=== PATIENT | male | born 1950 | race Caucasian/White ===

== ENCOUNTER 2016-08-19 01:07 | Inpatient (IN) ==
[2016-08-19] MEDS ORDERED: ASPIRIN PO STA (01:13)
[2016-08-19] MEDS ORDERED: LASIX IV ONE ×2 (01:28→04:04)
[2016-08-19] MEDS ORDERED: ALBUTEROL NEB INH ONE (01:28)
[2016-08-19 02:14] LABS: BASO% 0.1 % (0.0-0.8); EOS# 0.15 X1000 (0.0-0.7); EOS% 2.1 % (0.0-10.0); HEMATOCRIT 43.2 % (42.0-52.0); HEMOGLOBIN 13.5 g/dL (14.0-18.0); LYMPH# 1.07 X1000 (1.2-3.4); LYMPH% 14.8 % (20.5-51.1); MANUAL DIFF NEEDED? NO; MCH 23.2 PG (27-31); MCHC 31.3 g/dL (33-37); MCV 74.2 FL (81-99); MONO# 0.43 X1000 (0.11-0.59); MONO% 5.9 % (1.7-9.3); NEUT% 77.1 % (42.2-75.2); PLT 204 X1000 (130-400); RBC 5.82 XMIL (4.7-6.1)
[2016-08-19 02:22] LABS: INR 1.11; PROTIME 11.7 Seconds (9.2-11.7)
[2016-08-19 02:27] LABS: ALBUMIN 3.5 g/dL (3.5-5.0); CALCIUM 8.4 mg/dL (8.8-10.2); MAGNESIUM 2.2 mg/dL (1.5-2.7); POTASSIUM 3.8 mmol/L (3.5-5.1); TOTAL BILIRUBIN 0.84 mg/dL (0.20-1.00); TOTAL PROTEIN 6.7 g/dL (6.3-8.3)
--- NOTE | 2016-08-19 05:15 | EKG Report ---
Test Performed on : 08/19/2016 01:17:24 AM Test Reason : Chest Pain Blood Pressure : / mmHG Vent. Rate : 099 BPM Atrial Rate : 099 BPM P-R Int : 152 ms QRS Dur : 106 ms QT Int : 376 ms P-R-T Axes : 047 038 126 degrees QTc Int : 482 ms Normal sinus rhythm. Possible Inferior infarct , age undetermined Abnormal ECG When compared with ECG of 24-NOV-2015 01:51, Borderline criteria for Inferior infarct are now present QT has lengthened Unconfirmed Result
[2016-08-19] MEDS ORDERED: ZOFRAN IV PRN (06:00)
[2016-08-19] MEDS: HUMALOG SUBQ SCH ×4 (06:34→21:19)
[2016-08-19] MEDS: APRESOLINE PO SCH ×3 (08:24→16:21)
[2016-08-19] MEDS: NEURONTIN PO SCH ×3 (08:24→21:19)
[2016-08-19] MEDS: COREG PO SCH ×2 (08:24→21:19)
[2016-08-19] MEDS: IMDUR PO SCH (08:24)
[2016-08-19] MEDS: LASIX IV SCH ×2 (08:24→21:18)
[2016-08-19] MEDS: ASPIRIN EC PO SCH (08:24)
[2016-08-19] MEDS: EFFIENT PO SCH (08:24)
--- NOTE | 2016-08-19 08:38 | Diag Imaging Result Document ---
PROCEDURE NAME: CHEST-2 VIEWS - 08/19/2016 CHEST X-RAY, 2 VIEWS: COMPARISON: 11/24/2015. FINDINGS: There is improvement in the diffuse bilateral interstitial infiltrates compatible with pulmonary edema. Stable trace pleural effusions. Heart size remains borderline. IMPRESSION: Improvement in the interstitial pulmonary edema.
--- NOTE | 2016-08-19 11:16 | HISTORY AND PHYSICAL ---
PRIMARY CARE PHYSICIAN: ANTONETTE Shirley. INFORMATION SYSTEMS SECURITY MANAGER: Dr. Johnson in [place]. CHIEF COMPLAINT: Shortness of breath. HISTORY OF PRESENT ILLNESS: This is a 65-year-old male with a known ejection fraction of 30-35% that was last tested on 04/05/2015. He takes Lasix daily. Has other past medical history of hypertension, diabetes mellitus type 2 and now insulin dependent. Comes in to the emergency room with shortness of breath that started yesterday afternoon. The patient was noted as having crepitations bilaterally on assessment. He was given Lasix 40 mg in the emergency room but did not diurese very much and continued to have shortness of breath. Was given an additional 40 of Lasix and will be admitted for further evaluation and treatment. PAST MEDICAL HISTORY: 1. Chronic systolic heart failure with an ejection fraction 30-35% in April of 2015. 2. Hypertension. 3. Diabetes mellitus type 2, now insulin dependent. 4. Chronic kidney disease. 5. Coronary artery disease, status post myocardial infarction in 2000. PREVIOUS SURGICAL HISTORY: 1. Appendectomy. 2. Cardiac stenting. SOCIAL HISTORY: Denies alcohol, tobacco, or illicit drug use or abuse. Lives at home with his . He quit smoking 7 years ago. ALLERGIES: Codeine causing itching. Morphine causing rash. HOME MEDICATIONS: 1. Aspirin 81 mg p.o. daily. 2. Lasix 40 mg p.o. b.i.d. 3. Neurontin 600 mg p.o. t.i.d. 4. Glipizide 5 mg p.o. b.i.d. 5. Vitamin D2 50,000 units p.o. daily. 6. Novolin R 65 units subcutaneously b.i.d. 7. Effient 10 mg p.o. daily. 8. Imdur 30 mg p.o. daily. 9. Carvedilol 3.125 mg p.o. b.i.d. 10. Lipitor 40 mg p.o. at bedtime. 11. Hydralazine 25 mg p.o. t.i.d. REVIEW OF SYSTEMS: Patient has shortness of breath, shortness of breath on exertion, orthopnea, and PND. Denied any chest pain, nausea, vomiting, diarrhea, hematochezia, melena, dizziness, diaphoresis. A 10 point review of systems was fully completed with the patient. All other systems were found to be negative. PHYSICAL EXAMINATION: VITAL SIGNS: Temperature 97.9 degrees, pulse 89, respirations 16, blood pressure 159/82, oxygen saturation 96% on 2 L nasal cannula. GENERAL: Very pleasant, 65-year-old male sitting on the ER stretcher. Mild tachypnea. No accessory muscle use. No acute distress. HEENT: Head is atraumatic, normocephalic. Pupils equal, round, react to light. Extraocular eye movement intact. Sclerae are anicteric. Conjunctivae are pink. Oral mucosa is moist. NECK: Supple. Mild JVD. No thyromegaly. Trachea is midline. No cervical lymphadenopathy. CARDIAC: Regular rhythm. S1-S2 appreciated. No murmurs, gallops, rubs. LUNGS: Bilateral crepitations noted throughout the air denis. Symmetrical rise and fall with respirations. Mildly tachypneic. No accessory muscle use. ABDOMEN: Soft, nondistended, nontender. Bowel sounds present in all 4 quadrants, normoactive. No pulsatile mass. No organomegaly. EXTREMITIES: No clubbing or cyanosis. There is 1+ pitting edema of bilateral lower extremities. SKIN: Warm, dry, and intact. No acute lesions or rash. NEUROLOGICAL: Alert and oriented x3. Cranial nerves 2-12 grossly intact. LABORATORY DATA: WBC 7.25, hemoglobin 13.5, hematocrit 43.2, platelet count 204,000. Coagulation studies within normal limits. D-dimer 0.97. Sodium 140, potassium 3.8, chloride 98, carbon dioxide 25, BUN is 18, creatinine 1.5, glucose 224. ProBNP 11,954. ASSESSMENT AND PLAN: 1. Congestive heart failure exacerbation with known systolic heart failure. Patient has not had an echocardiogram recently. We will schedule an echocardiogram in the morning. Lasix 80 mg was given in the emergency room. We will continue Lasix 60 mg twice a day. Trend intakes, outputs, daily weight. 2. Hypertension. Continue home medications. 3. Diabetes mellitus type 2, now insulin dependent. Sliding scale insulin with fingerstick blood sugars before meals and at bedtime. 4. Chronic kidney disease. Aware. We will monitor. 5. Further recommendations per patient's clinical course. Dictated by ANTONETTE Arias for Cheo Garrido MD cc: ANTONETTE Arias MD Stephanie Weems, CRNP
--- NOTE | 2016-08-19 15:48 | ECHO REPORT ---
ORDER DATE: 08/19/2016 ECHOCARDIOGRAPHIC MEASUREMENTS: 1. Interventricular septum 1.1. 2. Left ventricular posterior wall 1.1. 3. Diastolic diameter 5.8. 4. Left atrium 3.9. 5. Aorta 4. SUMMARY OF 2-DIMENSIONAL IMAGIN. Left ventricular cavity size upper limit of normal. Estimated ejection fraction of 25% to 30%. There is inferior wall akinesis and global hypokinesis. 2. Tricuspid valve was normal. Mitral valve was normal. 3. Aortic valve leaflets are trileaflet. There is no aortic stenosis. There is trace aortic regurgitation. There is mild mitral regurgitation. 4. Mild tricuspid regurgitation. Peak velocity across the tricuspid valve was 2.2 m/sec. There is trace pulmonary regurgitation. 5. There is no pericardial effusion or obvious intracardiac mass or thrombus. cc: MD Tushar Jones CRNP
[2016-08-19] MEDS: LIPITOR PO SCH (21:19)
[2016-08-20] MEDS: HUMALOG SUBQ SCH ×4 (06:26→20:57)
[2016-08-20 07:50] LABS: BASO% 0.2 % (0.0-0.8); EOS# 0.19 X1000 (0.0-0.7); EOS% 3.4 % (0.0-10.0); HEMATOCRIT 40.9 % (42.0-52.0); HEMOGLOBIN 12.7 g/dL (14.0-18.0); LYMPH# 1.13 X1000 (1.2-3.4); LYMPH% 20.3 % (20.5-51.1); MANUAL DIFF NEEDED? YES; MCHC 31.1 g/dL (33-37); MCV 74.2 FL (81-99); MONO# 0.35 X1000 (0.11-0.59); MONO% 6.3 % (1.7-9.3); MPV 10.2 FL (7.4-10.4); NEUT% 69.8 % (42.2-75.2); PLT 198 X1000 (130-400); RBC 5.51 XMIL (4.7-6.1)
[2016-08-20 08:08] LABS: CALCIUM 8.5 mg/dL (8.8-10.2); POTASSIUM 3.2 mmol/L (3.5-5.1)
[2016-08-20] MEDS: COREG PO SCH ×2 (08:16→20:57)
[2016-08-20] MEDS: EFFIENT PO SCH (08:16)
[2016-08-20] MEDS: LASIX IV SCH ×2 (08:16→20:57)
[2016-08-20] MEDS: NEURONTIN PO SCH ×3 (08:16→20:57)
[2016-08-20] MEDS: IMDUR PO SCH (08:16)
[2016-08-20] MEDS: ASPIRIN EC PO SCH (08:16)
[2016-08-20] MEDS: APRESOLINE PO SCH ×3 (08:16→17:40)
[2016-08-20 08:35] LABS: BANDS 2 % (0-1); EOS 6 % (1-10); LYMPHS 20 % (21-51); MONO 8 % (1-9)
[2016-08-20] MEDS ORDERED: VITAMIN D PO SCH (11:00)
--- NOTE | 2016-08-20 14:15 | HISTORY AND PHYSICAL ---
ADDENDUM: Briefly, came in for CHF. Breathing is somewhat improved. Continue IV Lasix. He has some renal insufficiency so we will keep an eye on that. Echo is still pending. The rest of the workup is stable at this time. cc: Jaun Flores MD
[2016-08-20] MEDS ORDERED: KEPPRA 500 MG in NS 100 ML IV ONE (15:00)
[2016-08-20] MEDS: TYLENOL PO PRN (15:20)
--- NOTE | 2016-08-20 17:08 | PROGRESS NOTE ---
DATE: 08/20/2016 SUBJECTIVE: The patient is feeling well. He denied having any fever or chills. Shortness of breath is much improved. No nausea, no vomiting, no diarrhea. OBJECTIVE: Vital signs: Blood pressure is 120/63, pulse of 80, respiration 18, temperature of 98.0 degrees, saturation of 99% on 3 L nasal cannula. General appearance: Well-developed, well- nourished white male, in no acute distress. HEENT: Anicteric sclerae and conjunctivae. Neck: Supple. No JVD. No bruit. Cardiovascular: S1, S2. Normal rate and rhythm. No murmur, rubs, or gallops. Pulmonary: Clear to auscultation bilaterally. GI: Soft, nontender, nondistended. Normoactive bowel sounds. Musculoskeletal: No clubbing, cyanosis, or edema. DIAGNOSTIC DATA: White count 5.56, hemoglobin 12.7, hematocrit 40.9, platelets of 198,000. Chemistries: Sodium 138, potassium 3.2, chloride 96, bicarb 29, BUN 22, creatinine 1.7, glucose of 223. His echocardiogram is about 25%-30%. ASSESSMENT AND PLAN: This is a 65-year-old white male, admitted to the hospital for congestive heart failure. 1. Systolic congestive heart failure exacerbation confirmed by echocardiogram. Continue Lasix 60 mg p.o. b.i.d. We will watch his renal functions. If creatinine is creeping up we will back off on his Lasix to 40 mg twice a day instead of 60. We will keep the patient on Coreg for now. 2. His kidney function is marginal for an JONATHAN inhibitor or ARB. We will keep him on hydralazine and Imdur. 3. Diabetes type 2. We will continue sliding scale insulin. 4. Hyperlipidemia. We will continue Lipitor and aspirin. 5. History of coronary artery disease. Continue Effient. 6. Deep venous thrombosis prophylaxis, put the patient on Lovenox.
[2016-08-20] MEDS ORDERED: NS 1,000 ML ONE (18:21)
[2016-08-20] MEDS: POTASSIUM CHLORIDE 20 MEQ/SWI 20 MEQ/100 ML IVPB IV SCH ×2 (18:28→20:56)
[2016-08-20] MEDS: LIPITOR PO SCH (20:57)
[2016-08-21] MEDS: TYLENOL PO PRN (03:19)
[2016-08-21] MEDS: HUMALOG SUBQ SCH ×2 (06:13→11:05)
[2016-08-21 07:01] LABS: BASO% 0.2 % (0.0-0.8); EOS# 0.21 X1000 (0.0-0.7); EOS% 3.3 % (0.0-10.0); HEMATOCRIT 38.7 % (42.0-52.0); HEMOGLOBIN 12.1 g/dL (14.0-18.0); LYMPH# 1.31 X1000 (1.2-3.4); LYMPH% 20.8 % (20.5-51.1); MANUAL DIFF NEEDED? NO; MCH 23.3 PG (27-31); MCHC 31.3 g/dL (33-37); MCV 74.4 FL (81-99); MONO% 7.9 % (1.7-9.3); MPV 9.7 FL (7.4-10.4); NEUT% 67.8 % (42.2-75.2); PLT 182 X1000 (130-400)
[2016-08-21 07:24] LABS: CALCIUM 8.3 mg/dL (8.8-10.2); POTASSIUM 3.9 mmol/L (3.5-5.1)
[2016-08-21 08:38] VITALS: BP 144/86
[2016-08-21] MEDS ORDERED: LOVENOX SUBQ SCH (09:00)
[2016-08-21] MEDS: EFFIENT PO SCH (09:41)
[2016-08-21] MEDS: IMDUR PO SCH (09:41)
[2016-08-21] MEDS: LASIX IV SCH (09:41)
[2016-08-21] MEDS: APRESOLINE PO SCH ×2 (09:41→12:56)
[2016-08-21] MEDS: ASPIRIN EC PO SCH (09:41)
[2016-08-21] MEDS: NEURONTIN PO SCH (09:41)
[2016-08-21] MEDS: COREG PO SCH (09:41)
--- NOTE | 2016-08-22 12:51 | DISCHARGE SUMMARY ---
ADMISSION DATE: 08/19/2016 DISCHARGE DATE: 08/21/2016 PERTINENT PROCEDURES: Echocardiogram showed an EF of 25% to 30%. There is inferior wall, akinesis and global hypokinesis. CONSULTATIONS: None. DISCHARGE DIAGNOSES: 1. Systolic congestive heart failure exacerbation confirmed by echocardiogram. Patient was continued on Lasix p.o. b.i.d. as well as his Coreg. Stable. 2. Chronic kidney disease. Patient cannot be started on Angiotensin converting enzyme or angiotensin II receptor blockers secondary to this. He was kept on hydralazine and Imdur. 3. Diabetes mellitus type 2. Continue with his home insulin regimen. 4. Hyperlipidemia. Continue Lipitor. 5. Coronary artery disease. Continue Effient. HOSPITAL COURSE: Mr. Campos is a 65-year-old male with a known EF of 30% of 35 %. That was tested on 04/05/2015. He takes Lasix daily. He has a past medical history of hypertension, diabetes mellitus type 2 that is insulin dependent, who came to the emergency room with shortness of breath that started the day before. He was noted to have crepitations bilaterally on assessment. He was given IV Lasix in the ED but did not diurese very much. Continued to have shortness of breath. He was given additional 40 of Lasix and was admitted for CHF exacerbation with known systolic heart failure. He did undergo a more recent echocardiogram on this admission that did show an EF of 25% to 30% with inferior wall, akinesis and global hypokinesis. They trended his intakes and outputs as well as daily weights. He remained on his sliding scale insulin. The patient diuresed well. Due to his kidney function, we were unable to start any JONATHAN or ARB. Clinically, the patient is feeling better. His shortness of breath has much improved. He was put back on his p.o. Lasix 40 mg twice daily instead of 60 and remained on his beta nimisha. Patient is appropriate for discharge home today. VITAL SIGNS: At time of his discharge, temperature is 97.8 degrees, heart rate 90, respirations 19, blood pressure 144/86, O2 is 93%. DISCHARGE DIET: Healthy heart. DISCHARGE MEDICATIONS: 1. Aspirin 81 mg p.o. q.a.m. 2. Lipitor 40 mg p.o. at bedtime. 3. Carvedilol 3.125 mg p.o. b.i.d. 4. Vitamin D 50,000 units p.o. daily. 5. Lasix 60 mg p.o. b.i.d. 6. Gabapentin 600 mg p.o. t.i.d. 7. Glipizide ER 5 mg p.o. b.i.d. 8. Apresoline 25 mg p.o. t.i.d. 9. Novolin R 65 units subcutaneously b.i.d. 10. Imdur 30 mg p.o. daily. 11. Effient 10 mg p.o. daily. FOLLOWUP: Patient is being discharged home. He can follow up with his primary care physician, ANTONETTE Shirley. Patient can to return to the ED for any worsening of symptoms. DISCHARGE TIME: Thirty minutes. Dictated by ANTONETTE Guidry for Mehdi Euceda MD cc: ANTONETTE Shirley Addendum: I personally evaluated and examined the patient in conjunction to the TRANSMISSION MECHANIC and agreed with her plans and dispositions. Lungs exam is clear today. MTDD
--- NOTE | 2016-08-27 23:18 | PROVIDER DOCUMENTATION ---
This chart was entered by Yuliana Medina Scribe, acting as scribe for Saeed Glover MD. HPI-Respiratory General - General Chief Complaint: Shortness of Breath Stated Complaint: SOB Time Seen by Provider: 08/19/16 01:21 Source: patient Allergies/Adverse Reactions: Patient Allergies Allergy/AdvReac Type Severity Reaction Status Date / Time codeine [Codeine] Allergy Severe ITCHING Verified 08/26/16 14:43 morphine Allergy Intermediate RASH Verified 08/19/16 02:00 Home Medications: Home Medication List Medication Instructions Recorded Confirmed Last Taken Type Aspirin/Calcium Carbonate/Mag 81 mg PO QAM 04/05/15 08/26/16 08/26/16 09:00 History [Aspirin Buffered 325 mg Tab] Gabapentin 600 mg PO TID@0900,1500,2100 07/27/15 08/26/16 08/26/16 09:00 History Ergocalciferol (Vitamin D2) 50,000 units PO ORDERED 11/24/15 08/27/16 09:00 History [Vitamin D] Glipizide [Glipizide ER] 5 mg PO BID 11/24/15 08/26/16 08/26/16 09:00 History Insulin Regular, Human [Novolin R] 65 units SUBQ BID 11/24/15 08/26/16 08/25/16 09:00 History ATORVAstatin [Lipitor] 40 mg PO QHS 02/04/16 08/26/16 08/25/16 09:00 History Carvedilol 3.125 mg PO BID 02/04/16 08/26/16 08/26/16 09:00 History Hydralazine [Apresoline] 25 mg PO TID 02/04/16 08/26/16 08/26/16 09:00 History Isosorbide Mononitrate E.r. [Imdur] 30 mg PO DAILY 02/04/16 08/26/16 08/26/16 09 :00 History Prasugrel [Effient] 10 mg PO DAILY 02/04/16 08/26/16 08/26/16 09:00 History Furosemide 60 mg PO BID #90 08/21/16 08/26/16 08/26/16 09:00 Rx - History of Present Illness-Resp Nature of Presenting Problem: 65 year old M presents to the ED with a cc of shortness of breath with an onset of this afternoon around 1300. PT states that it is getting worse. PT denies chest pain, nausea, and vomiting. PT states that he has been taking his medications as prescribed. Severity in ED: reports: moderate Onset/Duration: reports: this afternoon (1300) Timing: reports: still present, getting worse Cough Quality/Degree: reports: no cough Current Respiratory Medication Therapy: Initiated see nurses note Modifying Factors: worse with: exertion, lying down Associated Symptoms: reports: shortness of breath Similar Symptoms Previously?: Yes Recently seen or treated by another doctor?: No Review of Systems - Adult - REVIEW OF SYSTEMS - ADULT Constitutional: denies: chills, fever Eyes: reports: no symptoms reported Ears, Nose, Mouth & Throat: reports: no symptoms reported Cardiovascular: denies: chest pain, palpitations Respiratory: reports: shortness of breath. denies: cough Gastrointestinal: denies: abdominal pain, nausea, vomiting Genitourinary: reports: no symptoms reported Musculoskeletal: reports: no symptoms reported Integumentary: reports: no symptoms reported Neurological: reports: no symptoms reported Psychiatric: reports: no symptoms reported Endocrine: reports: no symptoms reported Hematologic/Lymphatic: reports: no symptoms reported Allergic/Immunologic: reports: no symptoms reported All Other Systems: Reviewed and Negative Past History - Adult - PAST MEDICAL HISTORY-ADULT Review of Records: reports: Nursing Assessment Review, Medications Reviewed Major Childhood Illnesses: reports: denies history Cardiovascular: reports: CAD, CHF, HTN, [place] Respiratory: reports: COPD Gastrointestinal: reports: denies history Genitourinary: reports: denies history Musculoskeletal: reports: other (neuropathy) Neurological: reports: denies history Psychiatric: reports: denies history Endocrine/Immune: 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), Diabetes Other Conditions: reports: other (2 stents in bottom of leg) - PRIOR SURGERIES/PROCEDURES Surgical/Procedure History: reports: appendectomy, other (femoral stent) - PRIOR HOSPITALIZATIONS Prior Hospitalizations: reports: for similar symptoms - IMMUNIZATION STATUS Childhood Immunizations: See Nurse Assessment Flu Vaccine: See Nurse Assessment - FAMILY HISTORY Family History: reviewed, not pertinent - SOCIAL HISTORY Smoking: non-smoker Substance Use: none/never Alcohol Use Frequency: never Physical Exam-General - PHYSICAL EXAM-ADULT Initial Vital Signs Reviewed: Yes - CONSTITUTIONAL General Appearance: alert, mild distress - RESPIRATORY Respiratory: lungs clear, respiratory distress (mild), other (orthopnic) - CARDIOVASCULAR Cardiovascular: normal peripheral pulses, regular rate, rhythm, no edema - GASTROINTESTINAL (ABDOMEN) Abdominal Exam: non tender, soft - MUSCULOSKELETAL Extremity: pedal edema (bilateral trace edema) - SKIN Integumentary: normal color, normal turgor, warm/dry - PSYCHIATRIC Psych/Mental Status: normal mood/affect, normal thought content, normal thought process, oriented x 3 Progress - PLAN OF CARE/RESULTS Progress/Plan/Lab Results: Orders Category Date Time Status Admit - [facility] Routine AdmDCTranf 08/19/16 06:00 Ordered Activity - Up with Assistance ORDERED Care 08/19/16 06:00 Active Apply Mechanical Device [QM] ORDERED Care 08/19/16 06:00 Active Cardiac Monitoring DIRECTED Care 08/19/16 01:13 Completed Daily Weights 0500 Care 08/19/16 06:00 Active FSBS/Accucheck Result AC + HS Care 08/19/16 06:00 Active Intake and Output-Strict ORDERED Care 08/19/16 06:00 Active Oxygen Therapy- ED Nursing DIRECTED Care 08/19/16 01:13 Completed Saline Loc NOW Care 08/19/16 01:13 Active Vital Signs Order Q 4-HR ASSESS Care 08/19/16 06:00 Active Weight on Admission ORDERED Care 08/19/16 06:00 Completed Heart Healthy Diet Diet 08/19/16 05:07 Completed CHEST-2 VIEWS [RAD] Stat Exams 08/19/16 01:13 Completed BASIC METABOLIC PANEL [CHEM] Routine Lab 08/20/16 07:00 Completed CBC WITH DIFF [HEME] Routine Lab 08/20/16 07:00 Completed CBC WITH ELECTRONIC DIFF [HEME] Stat Lab 08/19/16 01:50 Completed CK PROFILE [SP CHEM] Stat Lab 08/19/16 01:50 Completed COMPREHENSIVE METABOLIC PANEL [CHEM] Stat Lab 08/19/16 01:50 Completed D-DIMER [CHEM] Stat Lab 08/19/16 01:50 Completed MAGNESIUM [CHEM] Stat Lab 08/19/16 01:50 Completed PRO B-NATRIURETIC PEPTIDE Stat Lab 08/19/16 01:50 Completed PROTIME WITH INR [COAG] Stat Lab 08/19/16 01:50 Completed PTT [COAG] Stat Lab 08/19/16 01:50 Completed TROPONIN T Stat Lab 08/19/16 01:50 Completed ATORVAstatin [Lipitor] Med 08/19/16 21:00 Discontinued 40 mg PO QHS Albuterol [Albuterol Neb] Med 08/19/16 01:28 Discontinued 2.5 mg INH NOW ONE Aspirin Med 08/19/16 01:13 Discontinued 325 mg PO STAT STA Aspirin EC Med 08/19/16 09:00 Discontinued 81 mg PO QAM Carvedilol [Coreg] Med 08/19/16 09:00 Discontinued 3.125 mg PO BID Ergocalciferol (Vitamin D2) [Vitamin D] Med 08/20/16 11:00 Discontinued 50,000 unit PO Q7D Furosemide [Lasix] Med 08/19/16 01:28 Discontinued 40 mg IV NOW ONE Furosemide [Lasix] Med 08/19/16 04:04 Discontinued 40 mg IV NOW ONE Furosemide [Lasix] Med 08/19/16 09:00 Discontinued 60 mg IV Q12H Gabapentin [Neurontin] Med 08/19/16 09:00 Discontinued 600 mg PO TID@0900,1500,2100 Hydralazine [Apresoline] Med 08/19/16 09:00 Discontinued 25 mg PO TID Insulin Lispro [Humalog] Med 08/19/16 07:00 Discontinued See Protocol SUBQ 0700,1100,1600,2100 Isosorbide Mononitrate E.r. [Imdur] Med 08/19/16 09:00 Discontinued 30 mg PO DAILY Ondansetron [Zofran] Med 08/19/16 06:00 Discontinued 4 mg IV Q4H PRN PRN Prasugrel [Effient] Med 08/19/16 09:00 Discontinued 10 mg PO DAILY Aerosol Treatments Routine Oth 08/19/16 01:28 Completed Aerosol Treatments Stat Oth 08/19/16 01:28 Completed Oxygen Device Routine Oth 08/19/16 06:00 Completed Telemetry [OM.EQ] Routine Oth 08/19/16 06:00 Active EKG [EKG] Stat Ther 08/19/16 01:13 Draft Transfer/Admit Order [TRANSFER] Routine Transfer 08/19/16 05:06 Completed Result Diagrams: 08/21/16 06:45 08/21/16 06:45 - EKG 1 Time of EKG reading by physician:: 01:17 EKG Read and Signed by:: Saeed Glover EKG Interpretation (*Must complete 3 of following elements*): Abnormal Rate: 99 Rhythm: NSR Comments: possible inferior infarct, age undetermined - XRAY 1 XRAY Study: Chest Impression: Abnormal (small right pleural effusion, scarring at left base, boarderline cardiomegally: Dr. Glover(ER MD)) Departure - Departure Time of Disposition Decision: 02:59 DIAGNOSIS: Congestive heart failure (CHF) Disposition: ADMITTED INPATIENT 09 Certified Medical Emergency: Emergent Condition: Fair - Critical Care Note This patient required my direct personal management.: No This chart was documented by the indicated scribe, (Yuliana Medina Scribe) and accurately reflects the services I performed and decisions made by me, Saeed Glover MD, as attested by the provider's signature.
== END 2016-08-21 13:57 | disposition home or self-care (01) ==
LOC: ED 01:07 → 3N 05:29 → SUATTDRO 05:29
PROVIDERS: ATTEND Internal Medicine

== ENCOUNTER 2016-08-26 12:36 | Inpatient (IN) ==
[2016-08-26] MEDS ORDERED: ASPIRIN PO STA (13:03)
[2016-08-26 13:34] LABS: BASO% 0.1 % (0.0-0.8); EOS# 0.15 X1000 (0.0-0.7); EOS% 1.4 % (0.0-10.0); HEMATOCRIT 39.5 % (42.0-52.0); HEMOGLOBIN 12.3 g/dL (14.0-18.0); LYMPH# 0.83 X1000 (1.2-3.4); LYMPH% 7.7 % (20.5-51.1); MANUAL DIFF NEEDED? NO; MCH 23.2 PG (27-31); MCHC 31.1 g/dL (33-37); MCV 74.5 FL (81-99); MONO# 0.55 X1000 (0.11-0.59); MONO% 5.1 % (1.7-9.3); MPV 10.9 FL (7.4-10.4); NEUT% 85.7 % (42.2-75.2); PLT 210 X1000 (130-400)
[2016-08-26 13:42] LABS: INR 1.03; PROTIME 10.8 Seconds (9.2-11.7); PTT 27.3 Seconds (22.0-36.0)
[2016-08-26 13:59] LABS: ALBUMIN 3.4 g/dL (3.5-5.0); CALCIUM 8.5 mg/dL (8.8-10.2); MAGNESIUM 2.2 mg/dL (1.5-2.7); POTASSIUM 4.9 mmol/L (3.5-5.1); TOTAL BILIRUBIN 0.55 mg/dL (0.20-1.00); TOTAL PROTEIN 6.2 g/dL (6.3-8.3)
[2016-08-26] MEDS ORDERED: NS 2,000 ML ONE (14:16)
--- NOTE | 2016-08-26 15:00 | Diag Imaging Result Document ---
PROCEDURE NAME: CHEST-2 VIEWS - 08/26/2016 FRONTAL AND LATERAL CHEST, 2 VIEWS: FINDINGS: The lungs are hyperexpanded. The heart is not enlarged. There are infiltrates in the mid and lower right lung. I believe there are tiny effusions. Questionable atelectasis or a tiny infiltrate in the left base. IMPRESSION: Right-sided pneumonia.
[2016-08-26] MEDS ORDERED: NS 1,000 ML IV ONE (15:45)
[2016-08-26] MEDS ORDERED: HUMULIN R IV ONE ×2 (15:46→17:36)
[2016-08-26] MEDS ORDERED: LASIX IV ONE (15:51)
[2016-08-26] MEDS ORDERED: HUMULIN R 100 UNIT in NS 99 ML IV ONE (15:54)
[2016-08-26] MEDS ORDERED: HUMULIN R 100 UNIT in NS 99 ML IV SCH (16:05)
--- NOTE | 2016-08-26 16:15 | EKG Report ---
Test Performed on : 08/26/2016 1:02:03 PM Test Reason : SOB Blood Pressure : / mmHG Vent. Rate : 098 BPM Atrial Rate : 098 BPM P-R Int : 150 ms QRS Dur : 100 ms QT Int : 330 ms P-R-T Axes : 044 026 217 degrees QTc Int : 421 ms Normal sinus rhythm. Possible Left atrial enlargement Possible Inferior infarct (cited on or before 19-AUG-2016) ST \T\ T wave abnormality, consider lateral ischemia Abnormal ECG When compared with ECG of 19-AUG-2016 01:17, QT has shortened Unconfirmed Result
[2016-08-26 16:28] LABS: ALLEN TEST YES; BE 3.9 mmoll (-3.0-3.0); BLOOD TYPE ARTERIAL; DRAW SITE R RADIAL; METHB 1.7 % (0.0-1.5); O2(CT) 13.8 mL/dL (15.0-23.0); PCO2(98.6) 42 mmHg (35-45); SAMPLE BLOOD; SAO2 80.5 % (95.0-100.0); THB 12.9 g/dL (11.5-17.4); pH(98.6) 7.44 (7.35-7.45)
[2016-08-26 16:30] LABS: PO2(98.6) 35 mmHg (60-100)
[2016-08-26 16:31] LABS: MODALITY ROOM AIR
--- NOTE | 2016-08-26 17:01 | PROVIDER DOCUMENTATION ---
This chart was entered by Modesto Guzman Scribe, acting as scribe for Adam Gifford MD. HPI-Respiratory General - General Chief Complaint: High Blood Sugar Stated Complaint: RECHECK Time Seen by Provider: 08/26/16 15:24 Source: patient Allergies/Adverse Reactions: Patient Allergies Allergy/AdvReac Type Severity Reaction Status Date / Time codeine [Codeine] Allergy Severe ITCHING Verified 08/26/16 14:43 morphine Allergy Intermediate RASH Verified 08/19/16 02:00 Home Medications: Home Medication List Medication Instructions Recorded Confirmed Last Taken Type Aspirin/Calcium Carbonate/Mag 81 mg PO QAM 04/05/15 08/26/16 08/26/16 09:00 History [Aspirin Buffered 325 mg Tab] Gabapentin 600 mg PO TID@0900,1500,2100 07/27/15 08/26/16 08/26/16 09:00 History Ergocalciferol (Vitamin D2) 50,000 units PO DAILY 11/24/15 08/26/16 08/26/16 09: 00 History [Vitamin D] Glipizide [Glipizide ER] 5 mg PO BID 11/24/15 08/26/16 08/26/16 09:00 History Insulin Regular, Human [Novolin R] 65 units SUBQ BID 11/24/15 08/26/16 08/25/16 09:00 History ATORVAstatin [Lipitor] 40 mg PO QHS 02/04/16 08/26/16 08/25/16 09:00 History Carvedilol 3.125 mg PO BID 02/04/16 08/26/16 08/26/16 09:00 History Hydralazine [Apresoline] 25 mg PO TID 02/04/16 08/26/16 08/26/16 09:00 History Isosorbide Mononitrate E.r. [Imdur] 30 mg PO DAILY 02/04/16 08/26/16 08/26/16 09 :00 History Prasugrel [Effient] 10 mg PO DAILY 02/04/16 08/26/16 08/26/16 09:00 History Furosemide 60 mg PO BID #90 08/21/16 08/26/16 08/26/16 09:00 Rx - History of Present Illness-Resp Nature of Presenting Problem: 65 y/o M presents to the ED c/o shortness of breath. onset this morning. hx of chf. discharged yesterday from [facility]. denies chest pain and all other symptoms. no other voiced complaints. Quality of Pain: reports: none Severity in ED: reports: mild Onset/Duration: reports: this morning Timing: reports: still present Exposure: reports: unknown cause Cough Quality/Degree: reports: no cough Current Respiratory Medication Therapy: Initiated see nurses note Modifying Factors: improves with: nothing Associated Symptoms: reports: shortness of breath Similar Symptoms Previously?: Yes Recently seen or treated by another doctor?: Yes Review of Systems - Adult - REVIEW OF SYSTEMS - ADULT Constitutional: denies: chills, fever Eyes: reports: no symptoms reported Ears, Nose, Mouth & Throat: reports: no symptoms reported Cardiovascular: denies: chest pain, palpitations Respiratory: reports: shortness of breath. denies: cough, wheezing Gastrointestinal: denies: diarrhea, nausea, vomiting Genitourinary: denies: dysuria, frequency Musculoskeletal: reports: no symptoms reported Integumentary: reports: no symptoms reported Neurological: denies: dizziness/vertigo, headache/migraines Psychiatric: reports: no symptoms reported Endocrine: reports: no symptoms reported Hematologic/Lymphatic: reports: no symptoms reported Allergic/Immunologic: reports: no symptoms reported All Other Systems: Reviewed and Negative Past History - Adult - PAST MEDICAL HISTORY-ADULT Review of Records: reports: Nursing Assessment Review, Medications Reviewed Major Childhood Illnesses: reports: denies history Cardiovascular: reports: CAD, CHF, HTN, DE Respiratory: reports: COPD Gastrointestinal: reports: denies history Genitourinary: reports: denies history Musculoskeletal: reports: other (neuropathy) Neurological: reports: denies history Psychiatric: reports: denies history Endocrine/Immune: 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), Diabetes Other Conditions: reports: other (2 stents in bottom of leg) - PRIOR SURGERIES/PROCEDURES Surgical/Procedure History: reports: appendectomy, other (femoral stent) - PRIOR HOSPITALIZATIONS Prior Hospitalizations: reports: for similar symptoms - IMMUNIZATION STATUS Childhood Immunizations: See Nurse Assessment Flu Vaccine: See Nurse Assessment - FAMILY HISTORY Family History: reviewed, not pertinent Physical Exam-General - PHYSICAL EXAM-ADULT Initial Vital Signs Reviewed: Yes - CONSTITUTIONAL General Appearance: alert, no apparent distress - EYES Eyes: PERRL/EOMI, pink conjunctivae - HEAD, EARS, NOSE, MOUTH & THROAT HENMT: moist mucous membranes, normal ENT inspection - NECK Neck: full range of motion, normal inspection - RESPIRATORY Respiratory: lungs clear, normal breath sounds, accessory muscle use - CARDIOVASCULAR Cardiovascular: normal peripheral pulses, regular rate, rhythm - GASTROINTESTINAL (ABDOMEN) Abdominal Exam: normal bowel sounds, non tender, soft - MUSCULOSKELETAL Extremity: normal range of motion, normal capillary refill - SKIN Integumentary: normal color, warm/dry - NEUROLOGIC Neurologic: 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 II-XII nml as tested, no motor/sensory deficits - PSYCHIATRIC Psych/Mental Status: normal mood/affect, oriented x 3 Progress - PLAN OF CARE/RESULTS Progress/Plan/Lab Results: Vital Signs - 8 hr 08/26/16 12:57 08/26/16 14:50 08/26/16 15:06 Temperature 98.4 F Pulse Rate 94 H 92 H 91 H Respiratory Rate 22 19 9 L Blood Pressure 119/49 150/84 150/78 O2 Sat by Pulse Oximetry 89 L 83 L 08/26/16 16:11 08/26/16 16:31 Temperature Pulse Rate 85 Respiratory Rate Blood Pressure 171/97 O2 Sat by Pulse Oximetry 92 L 92 L Laboratory Results - last 24 hr 08/26/16 08/26/16 08/26/16 13:16 13:16 13:16 WBC 10.74 RBC 5.30 Hgb 12.3 L Hct 39.5 L MCV 74.5 L MCH 23.2 L MCHC 31.1 L RDW Std Deviation 17.8 H Plt Count 210 MPV 10.9 H Immature Gran % (Auto) 0.0 Neut % (Auto) 85.7 H Lymph % (Auto) 7.7 L Tyrrell % (Auto) 5.1 Eos % (Auto) 1.4 Baso % (Auto) 0.1 Immature Gran # (Auto) 0.00 Neut # (Auto) 9.20 H Lymph # (Auto) 0.83 L Tyrrell # (Auto) 0.55 Eos # (Auto) 0.15 Baso # (Auto) 0.01 PT INR PTT (Actin FS) D-Dimer 0.77 H Specimen Type Sample Site pH pCO2 pO2 HCO3 Base Excess Oxyhemoglobin ABG O2 Sat (Calculated) ABG O2 Saturation ABG Carboxyhemoglobin ABG Methemoglobin Jose Test A-a O2 Difference Total Hemoglobin Lactate Blood Gas Modality FiO2 % Sodium 138 Potassium 4.9 Chloride 97 L Carbon Dioxide 27 Anion Gap 14 BUN 23 H Creatinine 1.6 H Estimated GFR/1.73 m2 44 BUN/Creatinine Ratio 14 Glucose 462 H* Calculated Osmolality 300 Calcium 8.5 L Magnesium 2.2 Total Bilirubin 0.55 AST 13 ALT 7 L Alkaline Phosphatase 75 Creatine Kinase 27 Troponin T Nys-G-Letersorypl Pept Total Protein 6.2 L Albumin 3.4 L Globulin 2.8 Albumin/Globulin Ratio 1.2 08/26/16 08/26/16 08/26/16 13:16 13:16 13:16 WBC RBC Hgb Hct MCV MCH MCHC RDW Std Deviation Plt Count MPV Immature Gran % (Auto) Neut % (Auto) Lymph % (Auto) Tyrrell % (Auto) Eos % (Auto) Baso % (Auto) Immature Gran # (Auto) Neut # (Auto) Lymph # (Auto) Tyrrell # (Auto) Eos # (Auto) Baso # (Auto) PT 10.8 INR 1.03 PTT (Actin FS) 27.3 D-Dimer Specimen Type Sample Site pH pCO2 pO2 HCO3 Base Excess Oxyhemoglobin ABG O2 Sat (Calculated) ABG O2 Saturation ABG Carboxyhemoglobin ABG Methemoglobin Jose Test A-a O2 Difference Total Hemoglobin Lactate Blood Gas Modality FiO2 % Sodium Potassium Chloride Carbon Dioxide Anion Gap BUN Creatinine Estimated GFR/1.73 m2 BUN/Creatinine Ratio Glucose Calculated Osmolality Calcium Magnesium Total Bilirubin AST ALT Alkaline Phosphatase Creatine Kinase Troponin T < 0.010 [id number]-Ulfcyakbqig Pept 9973 H Total Protein Albumin Globulin Albumin/Globulin Ratio 08/26/16 16:15 WBC RBC Hgb Hct MCV MCH MCHC RDW Std Deviation Plt Count MPV Immature Gran % (Auto) Neut % (Auto) Lymph % (Auto) Tyrrell % (Auto) Eos % (Auto) Baso % (Auto) Immature Gran # (Auto) Neut # (Auto) Lymph # (Auto) Tyrrell # (Auto) Eos # (Auto) Baso # (Auto) PT INR PTT (Actin FS) D-Dimer Specimen Type ARTERIAL Sample Site R RADIAL pH 7.44 pCO2 42 pO2 35 L* HCO3 27.4 H Base Excess 3.9 H Oxyhemoglobin 76.3 L* ABG O2 Sat (Calculated) 13.8 L ABG O2 Saturation 80.5 L ABG Carboxyhemoglobin 3.60 H ABG Methemoglobin 1.7 H Jose Test YES A-a O2 Difference 62.0 Total Hemoglobin 12.9 Lactate 1.70 Blood Gas Modality ROOM AIR FiO2 % 21.0 Sodium Potassium Chloride Carbon Dioxide Anion Gap BUN Creatinine Estimated GFR/1.73 m2 BUN/Creatinine Ratio Glucose Calculated Osmolality Calcium Magnesium Total Bilirubin AST ALT Alkaline Phosphatase Creatine Kinase Troponin T Eee-P-Onalixlqrkk Pept Total Protein Albumin Globulin Albumin/Globulin Ratio Orders Category Date Time Status Cardiac Monitoring DIRECTED Care 08/26/16 13:03 Active FSBS/Accucheck Result ORDERED Care 08/26/16 15:53 Active Oxygen Therapy- ED Nursing DIRECTED Care 08/26/16 13:03 Active Saline Loc NOW Care 08/26/16 13:03 Active CHEST-2 VIEWS [RAD] Stat Exams 08/26/16 13:03 Completed ABG [RESP] Routine Lab 08/26/16 16:15 Completed BLOOD CULTURE [BLDCUL] Stat Lab 08/26/16 16:28 Ordered CBC WITH ELECTRONIC DIFF [HEME] Stat Lab 08/26/16 13:16 Completed CK PROFILE [SP CHEM] Stat Lab 08/26/16 13:16 Completed COMPREHENSIVE METABOLIC PANEL [CHEM] Stat Lab 08/26/16 13:16 Completed D-DIMER [CHEM] Stat Lab 08/26/16 13:16 Completed MAGNESIUM [CHEM] Stat Lab 08/26/16 13:16 Completed PRO B-NATRIURETIC PEPTIDE Stat Lab 08/26/16 13:16 Completed PROTIME WITH INR [COAG] Stat Lab 08/26/16 13:16 Completed PTT [COAG] Stat Lab 08/26/16 13:16 Completed TROPONIN T Stat Lab 08/26/16 13:16 Completed 0.9% Sodium Chloride Inj [Ns] 1,000 ml Med 08/26/16 14:16 Discontinued .ROUTE As Directed 0.9% Sodium Chloride Inj [Ns] 1,000 ml Med 08/26/16 15:45 Active IV 150 mls/hr 0.9% Sodium Chloride Inj [Ns] 99 ml Med 08/26/16 16:05 Active Insulin Human Regular [Humulin R] 100 unit IV Per Protocol Aspirin Med 08/26/16 13:03 Discontinued 325 mg PO STAT STA Furosemide [Lasix] Med 08/26/16 15:51 Discontinued 60 mg IV NOW ONE Insulin Human Regular [Humulin R] Med 08/26/16 15:46 Discontinued 10 unit IV NOW ONE EKG [EKG] Stat Ther 08/26/16 12:59 Draft Result Diagrams: 08/26/16 13:16 08/26/16 13:16 - XRAY 1 XRAY Study: Chest Impression: Abnormal (right sided pneumonia) Departure - Departure Time of Disposition Decision: 16:57 DIAGNOSIS: Hypoxia Pneumonia Qualifiers: Pneumonia type: due to unspecified organism Laterality: right Lung location: lower lobe of lung Qualified Code(s): J18.1 - Lobar pneumonia, unspecified organism CHF (congestive heart failure) Qualifiers: Congestive heart failure type: systolic Congestive heart failure chronicity: chronic Qualified Code(s): I50.22 - Chronic systolic (congestive) heart failure Disposition: ADMITTED INPATIENT 09 Certified Medical Emergency: Emergent Condition: Stable Referrals and Follow-Ups: Malou Kenney CRNP [Primary Care Provider] - - Critical Care Note This patient required my direct personal management.: No This chart was documented by the indicated scribe, (Modesto Guzman Scribrenata) and accurately reflects the services I performed and decisions made by me, Adam Gifford MD, as attested by the provider's signature.
[2016-08-26] MEDS ORDERED: ZITHROMAX 500 MG/NS 500 MG/250 ML IVPB IV SCH (17:15)
[2016-08-26] MEDS ORDERED: ROCEPHIN 1 GM/NS 1 GM/50 ML IVPB IV SCH (17:15)
[2016-08-26] MEDS ORDERED: LANTUS SUBQ ONE (17:20)
[2016-08-26] MEDS ORDERED: ZITHROMAX 500 MG/NS 500 MG/250 ML IVPB IV ONE (17:30)
[2016-08-26] MEDS: ROCEPHIN 1 GM/NS 1 GM/50 ML IVPB IV SCH (17:45)
[2016-08-26] MEDS ORDERED: DUONEB (A & A) INH PRN (18:27)
[2016-08-26] MEDS ORDERED: ZOFRAN IV PRN (18:27)
[2016-08-26] MEDS ORDERED: TYLENOL PO PRN (18:27)
--- NOTE | 2016-08-26 18:59 | HISTORY AND PHYSICAL ---
CHIEF COMPLAINT: Shortness of breath and cough. HISTORY OF PRESENT ILLNESS: 65-year-old male with a past medical history of CHF with an ejection fraction of 30-35% in April 2015, recently discharged on 08/21/2016 secondary to CHF exacerbation, also history of hypertension, type 2 diabetes, CKD and coronary artery disease status post myocardial infarction in 2000. Like I mentioned before, this patient was recently discharged. Yesterday he started having cough with greenish sputum and today at 3 a.m. he started having shortness of breath to the point that he was getting dizzy so he decided to come to the emergency department for evaluation. At the emergency department they found out that this patient was hypoxic. They put this patient on oxygen and they asked for a chest x-ray that showed a right-sided pneumonia at the level of the mid and lower right lung. So since this patient was recently discharged from this hospital and now he is having pneumonia this patient is going to be admitted with antibiotics. PAST MEDICAL HISTORY: 1. CHF, systolic with an ejection fraction of 30-35% in April 2015 recently discharged on 08/21/2016. 2. Hypertension. 3. Type 2 diabetes insulin dependent. 4. CKD. 5. Coronary artery disease status post myocardial infarction in 2000. PAST SURGICAL HISTORY: Appendectomy and cardiac stenting. SOCIAL HISTORY: No alcohol, no tobacco, no drug abuse. He lives with and he quit smoking 7 years ago. ALLERGIES: Codeine and morphine. Apparently those medications caused itching and rash. DISCHARGE MEDICATIONS: Aspirin 81 mg p.o. q.a.m., Lipitor 40 mg p.o. at bedtime, carvedilol 3.125 mg p.o. b.i.d., vitamin D 50,000 units p.o. daily, Lasix 60 mg p.o. b.i.d., gabapentin 600 mg p.o. t.i.d., glipizide ER 5 mg p.o. b.i.d., Apresoline 25 mg p.o. t.i.d., Novolin R 65 units subcu b.i.d., Imdur 30 mg p.o. daily, Effient 10 mg p.o. daily. REVIEW OF SYSTEMS: General: Shortness of breath. Cough with green sputum. The 14 points of review of systems were reviewed. All negative except as per HPI. PHYSICAL EXAM: VITAL SIGNS: Temperature 98.4, pulse 85, respiratory rate 19, blood pressure 171/97, O2 saturation 92 on 2 L of nasal cannula. HEENT: Head normocephalic. No trauma. PERRLA. NECK: Supple. No JVD. No masses. Central trachea. CHEST: Decreased breath sounds at the bases with rhonchi at the level of the right lower lung. No wheezing. ABDOMEN: Soft, nontender, nondistended. No hepatosplenomegaly. EXTREMITIES: No edema. No clubbing. No cyanosis. NEUROLOGICAL: The patient is alert and oriented x3. No focal neurological deficits. LABORATORY: WBC 10.7, hemoglobin 12.3, hematocrit 39.5, platelets 210,000. Sodium 138, potassium 4.9, chloride 97, bicarbonate 27, BUN 23, creatinine 1.6, glucose 462, calcium 8.5. ASSESSMENT AND PLAN: 1. Right middle and lower lung pneumonia, likely healthcare-associated pneumonia. This patient was recently discharged from this hospital. I will put this patient on Zosyn and breathing treatment and oxygen. I will monitor this patient with serial x-rays. 2. Congestive heart failure not in exacerbation at this moment. I will continue his home medications. 3. Hypertension. Continue with home medications. 4. Type 2 diabetes. I will put this patient on 30 of Lantus daily and sliding scale insulin and I will adjust the medications accordingly, also pattern of blood sugar. 1. Chronic kidney disease aware. Will monitor. 2. Dyslipidemia. Continue with Lipitor. 3. History of coronary artery disease. Continue with his home medications aspirin, carvedilol. 4. Further recommendations per patient's clinical course. cc: Tonny Driscoll MD
[2016-08-26] MEDS: ZOSYN 3.375 GM/NS 3.375 GM/50 ML IVPB IV SCH (19:08)
[2016-08-26] MEDS: DUONEB (A & A) INH SCH ×2 (19:30→23:16)
[2016-08-26] MEDS: HEPARIN SUBQ SCH (21:17)
[2016-08-26] MEDS: COREG PO SCH (21:17)
[2016-08-26] MEDS: LIPITOR PO SCH (21:17)
[2016-08-26] MEDS: NEURONTIN PO SCH (21:17)
[2016-08-26] MEDS: LASIX PO SCH (21:18)
[2016-08-26] MEDS: HUMULIN R SUBQ SCH (21:18)
[2016-08-27] MEDS: ZOSYN 3.375 GM/NS 3.375 GM/50 ML IVPB IV SCH ×4 (02:56→20:45)
[2016-08-27] MEDS: DUONEB (A & A) INH SCH ×6 (03:36→23:15)
[2016-08-27] MEDS: HUMULIN R SUBQ SCH ×4 (06:08→20:50)
--- NOTE | 2016-08-27 06:11 | Diag Imaging Result Document ---
PROCEDURE NAME: CHEST-PORTABLE - 08/27/2016 PORTABLE CHEST: COMPARISON: Compared to 08/26/2016. FINDINGS: The lungs are well expanded except for minimal atelectasis in the left base. The heart is not enlarged. Small infiltrates in the right lung are slightly less dense. There is mild pulmonary edema. No pleural effusions identified. IMPRESSION: Development of mild pulmonary edema, but improvement in the right basilar pneumonia.
[2016-08-27 06:36] LABS: MANUAL DIFF NEEDED? NO
[2016-08-27 06:47] LABS: BASO% 0.2 % (0.0-0.8); EOS# 0.28 X1000 (0.0-0.7); EOS% 4.6 % (0.0-10.0); HEMATOCRIT 37.5 % (42.0-52.0); HEMOGLOBIN 11.5 g/dL (14.0-18.0); LYMPH# 1.53 X1000 (1.2-3.4); MCHC 30.7 g/dL (33-37); MCV 75.2 FL (81-99); MONO# 0.51 X1000 (0.11-0.59); MONO% 8.3 % (1.7-9.3); MPV 10.5 FL (7.4-10.4); NEUT% 61.9 % (42.2-75.2); PLT 183 X1000 (130-400); RBC 4.99 XMIL (4.7-6.1)
[2016-08-27 07:05] LABS: ALBUMIN 3.1 g/dL (3.5-5.0); CALCIUM 7.9 mg/dL (8.8-10.2); POTASSIUM 3.4 mmol/L (3.5-5.1); TOTAL BILIRUBIN 0.45 mg/dL (0.20-1.00); TOTAL PROTEIN 6.1 g/dL (6.3-8.3)
[2016-08-27] MEDS: IMDUR PO SCH (08:02)
[2016-08-27] MEDS: APRESOLINE PO SCH ×3 (08:02→20:45)
[2016-08-27] MEDS: NEURONTIN PO SCH ×3 (08:02→20:45)
[2016-08-27] MEDS: COREG PO SCH ×2 (08:02→20:45)
[2016-08-27] MEDS: LASIX PO SCH ×2 (08:02→20:45)
[2016-08-27] MEDS: ASPIRIN EC PO SCH (08:02)
[2016-08-27] MEDS: HEPARIN SUBQ SCH ×2 (08:02→20:45)
[2016-08-27] MEDS: EFFIENT PO SCH (08:13)
[2016-08-27] MEDS: ROCEPHIN 1 GM/NS 1 GM/50 ML IVPB IV SCH (08:13)
[2016-08-27] MEDS ORDERED: VITAMIN D PO SCH (09:00)
--- NOTE | 2016-08-27 12:18 | PROGRESS NOTE ---
DATE: 08/27/2016 SUBJECTIVE: This patient states that he is feeling much better. Today, he is not complaining of moderate shortness of breath. He is still complaining of mild shortness of breath, but compared with yesterday is much better. He denies nausea, vomiting, diarrhea, constipation. No chest pain. OBJECTIVE: Vital Signs: Temperature 97.7 degrees, pulse 70 respiratory rate 18, blood pressure 120/60, oxygen saturation 100% on 2 L of nasal cannula. HEENT: Head normocephalic. No trauma. PERRLA. Neck: Supple. No JVD. No masses. Central trachea. Chest: Decreased breath sounds at the bases with rhonchi at the level of the right lower lung. No wheezing. Abdomen: Soft, nontender, nondistended. No hepatosplenomegaly. Extremities: No edema. No clubbing. No cyanosis. Cardiovascular: RRR. No murmurs. Neurological: The patient is alert and oriented x3. No focal neurological deficits. LABORATORY: WBC 6.1, hemoglobin 11.5, hematocrit 37.5, platelet 183. Sodium 139, potassium 3.4, chloride 96, bicarbonate 30, BUN 21, creatinine 1.7. Glucose 218, calcium 7.9, albumin 3.1. ASSESSMENT AND PLAN: 1. Right middle and lower lung pneumonia, likely healthcare-associated pneumonia. This patient was recently discharged from this hospital. This patient is on Zosyn and he is getting better. We will continue with the same management for now, continue with oxygen supplementation as well. 2. Congestive heart failure not in exacerbation. Continue with home medication. 3. Hypertension. Continue with home medications. This is stable. 4. Type 2 diabetes. I will continue with the same management for now, and I will readjust his medications in the next 24 hours. 5. Chronic kidney disease. Aware. Will monitor. 6. Dyslipidemia. Continue with Lipitor. 7. History of coronary artery disease. Continue with home medications, aspirin and carvedilol. cc: Tonny Driscoll MD
[2016-08-27] MEDS: LIPITOR PO SCH (20:45)
[2016-08-27] MEDS ORDERED: LANTUS SUBQ SCH (21:00)
[2016-08-27] MEDS ORDERED: INSULIN PEN NEEDLES ONE (21:06)
[2016-08-28] MEDS: ZOSYN 3.375 GM/NS 3.375 GM/50 ML IVPB IV SCH ×4 (03:23→20:12)
[2016-08-28] MEDS: DUONEB (A & A) INH SCH ×6 (03:38→22:54)
[2016-08-28] MEDS: HUMULIN R SUBQ SCH ×4 (06:07→20:58)
[2016-08-28 07:13] LABS: BASO% 0.2 % (0.0-0.8); EOS# 0.33 X1000 (0.0-0.7); EOS% 5.8 % (0.0-10.0); HEMATOCRIT 37.3 % (42.0-52.0); HEMOGLOBIN 11.5 g/dL (14.0-18.0); LYMPH# 1.11 X1000 (1.2-3.4); LYMPH% 19.4 % (20.5-51.1); MANUAL DIFF NEEDED? YES; MCH 22.9 PG (27-31); MCHC 30.8 g/dL (33-37); MCV 74.2 FL (81-99); MONO# 0.48 X1000 (0.11-0.59); MONO% 8.4 % (1.7-9.3); MPV 10.9 FL (7.4-10.4); NEUT% 66.2 % (42.2-75.2); PLT 183 X1000 (130-400); RBC 5.03 XMIL (4.7-6.1)
[2016-08-28] MEDS ORDERED: LANTUS SUBQ SCH (07:49)
[2016-08-28 07:56] LABS: EOS 5 % (1-10); LYMPHS 24 % (21-51); MONO 2 % (1-9)
[2016-08-28 08:06] LABS: CALCIUM 8.2 mg/dL (8.8-10.2); POTASSIUM 4.1 mmol/L (3.5-5.1)
[2016-08-28] MEDS: NEURONTIN PO SCH ×3 (10:38→20:16)
[2016-08-28] MEDS: LASIX PO SCH ×2 (10:38→20:13)
[2016-08-28] MEDS: IMDUR PO SCH (10:39)
[2016-08-28] MEDS: APRESOLINE PO SCH ×3 (10:39→17:02)
[2016-08-28] MEDS: COREG PO SCH ×2 (10:39→20:17)
[2016-08-28] MEDS: EFFIENT PO SCH (10:39)
[2016-08-28] MEDS: ASPIRIN EC PO SCH (10:39)
[2016-08-28] MEDS: ROCEPHIN 1 GM/NS 1 GM/50 ML IVPB IV SCH (10:40)
[2016-08-28] MEDS: HEPARIN SUBQ SCH ×2 (10:41→20:16)
--- NOTE | 2016-08-28 13:00 | PROGRESS NOTE ---
DATE: 08/28/2016 SUBJECTIVE: This patient states that he is feeling better, but today he was taking a shower without oxygen and he was really tired and short of breath. I talked to the patient and I told him that for now he needs to continue with oxygen supplementation. I have consulted for a Physical Therapy evaluation for this patient. Tomorrow, hopefully, in the morning we will get a new chest x-ray. OBJECTIVE: Vital Signs: Temperature 97.8 degrees, pulse 94, respiratory rate 16, blood pressure 129/58, oxygen saturation 93% on 2L nasal cannula. HEENT: Head normocephalic. No trauma. PERRLA. Neck: Supple. No JVD. No masses. Central trachea. Chest: Decreased breath sounds at the level of the right base with rhonchi, as well. Mild scattered wheezing. Abdomen: Soft, nontender, nondistended. No hepatosplenomegaly. Extremities: No edema. No clubbing. No cyanosis. Cardiovascular: RRR. No murmurs. Neurological: The patient is alert and oriented x3. No focal neurological deficits. LABORATORY: WBC 5.7, hemoglobin 11.5, hematocrit 37.3, platelets 183,000. Sodium 139, potassium 4.1, chloride 97, bicarbonate 30, BUN 26, creatinine 2, glucose 176, calcium 8.2. ASSESSMENT AND PLAN: 1. Right middle and lower lung pneumonia, likely healthcare-associated pneumonia. This patient was recently discharged from this hospital. This patient is on Zosyn at this moment and he is getting better. I will continue with the same management for now, continue with oxygen supplementation and physical therapy. 2. Congestive heart failure, not in exacerbation. Continue with home medication. 3. Hypertension. Continue with home medication. This is stable. 4. Type 2 diabetes. I will increase the dose of Lantus to 45 units daily, and I will continue with sliding scale insulin and pattern of blood sugar. 5. Chronic kidney disease. Aware. Will monitor. Stable. 6. Dyslipidemia. Continue with Lipitor. 7. History of coronary artery disease. Continue with home medications, aspirin and carvedilol. 8. Physical deconditioning. I have consulted for Physical Therapy evaluation. He should continue with oxygen for now. cc: Tonny Driscoll MD
[2016-08-28] MEDS: DILAUDID IV PRN (18:38)
[2016-08-28] MEDS: LIPITOR PO SCH (20:16)
[2016-08-29] MEDS: ZOSYN 3.375 GM/NS 3.375 GM/50 ML IVPB IV SCH ×4 (03:20→21:10)
[2016-08-29] MEDS: DILAUDID IV PRN (03:53)
[2016-08-29] MEDS: DUONEB (A & A) INH SCH ×6 (03:55→23:04)
[2016-08-29] MEDS: HUMULIN R SUBQ SCH ×4 (06:19→21:13)
[2016-08-29 07:16] LABS: BASO% 0.3 % (0.0-0.8); EOS# 0.42 X1000 (0.0-0.7); EOS% 6.2 % (0.0-10.0); HEMATOCRIT 38.7 % (42.0-52.0); HEMOGLOBIN 11.9 g/dL (14.0-18.0); LYMPH# 1.41 X1000 (1.2-3.4); LYMPH% 20.8 % (20.5-51.1); MANUAL DIFF NEEDED? YES; MCHC 30.7 g/dL (33-37); MCV 74.7 FL (81-99); MONO# 0.66 X1000 (0.11-0.59); MONO% 9.7 % (1.7-9.3); MPV 10.9 FL (7.4-10.4); PLT 178 X1000 (130-400); RBC 5.18 XMIL (4.7-6.1)
--- NOTE | 2016-08-29 07:33 | Diag Imaging Result Document ---
PROCEDURE NAME: CHEST-2 VIEWS - 08/29/2016 TWO VIEWS OF THE CHEST: FINDINGS: There is improvement in the interstitial pulmonary edema present on 08/27/2016. Some coarse opacity is present in both lung bases, which may be due to atelectasis. This is improved since 11/24/2015 and 08/19/2016. IMPRESSION: Improved pulmonary edema.
[2016-08-29 07:46] LABS: CALCIUM 8.8 mg/dL (8.8-10.2)
[2016-08-29 08:11] LABS: EOS 10 % (1-10); LYMPHS 18 % (21-51); MONO 6 % (1-9)
[2016-08-29 08:12] LABS: HYPOCHROM 1+
[2016-08-29] MEDS: ROCEPHIN 1 GM/NS 1 GM/50 ML IVPB IV SCH (09:00)
[2016-08-29] MEDS: LASIX PO SCH ×2 (09:04→21:08)
[2016-08-29] MEDS: EFFIENT PO SCH (09:04)
[2016-08-29] MEDS: APRESOLINE PO SCH ×3 (09:05→17:13)
[2016-08-29] MEDS: NEURONTIN PO SCH ×3 (09:05→21:09)
[2016-08-29] MEDS: HEPARIN SUBQ SCH ×2 (09:14→21:09)
[2016-08-29] MEDS: IMDUR PO SCH (09:15)
[2016-08-29] MEDS: ASPIRIN EC PO SCH (09:16)
[2016-08-29] MEDS: COREG PO SCH ×2 (09:18→21:10)
--- NOTE | 2016-08-29 12:05 | PROGRESS NOTE ---
DATE: 08/29/2016 SUBJECTIVE: This patient states that he is feeling better, but he is still having mild shortness of breath but compared with yesterday he states that he is better. Yesterday, I modified his Lantus and his blood sugar has been running in the lower side. I will decrease the amount of Lantus from 45 to 40 and I will monitor this patient for 24 more hours. OBJECTIVE: Vital Signs: Temperature 97.8 degrees, pulse 70, respiratory rate 18, blood pressure 135/63, O2 saturation 97% on 2 L of nasal cannula. HEENT: Head normocephalic. No trauma. PERRLA. Neck: Supple. No JVD. No masses. Central trachea. Chest: Decreased breath sounds at the level of the right base with rhonchi. Mild scattered wheezing. Abdomen: Soft, nontender, nondistended. No hepatosplenomegaly. Extremities: No edema. No clubbing. No cyanosis. Neurological: The patient is alert and oriented x3. No focal neurological deficits. LABORATORY: WBC 6.7, hemoglobin 11.9, hematocrit 38.7, platelet 178,000. Sodium 138, potassium 4, chloride 93, bicarbonate 32, BUN 27, creatinine 2.2, glucose 65, calcium 8.8. ASSESSMENT AND PLAN: 1. Right middle and lower lung pneumonia, likely related to healthcare associated pneumonia. This patient was recently discharged from this hospital. This patient is on Zosyn and at this moment he is getting better. We will continue with the same management for now. Continue with oxygen supplementation of physical therapy. 2. Congestive heart failure not in exacerbation. Continue with home medication. 3. Hypertension. Continue home medication. This is stable. 4. Type 2 diabetes. The dose of Lantus was increased yesterday to 45 and his blood sugar is running on the low side mostly in the morning, I will decrease the dose of Lantus to 40 and I will continue with the pattern of blood sugar. 5. Chronic kidney disease. Aware. Continue to monitor. 6. Dyslipidemia. Continue with Lipitor. 7. History of coronary artery disease. Continue with medications, aspirin and carvedilol. 8. Physical deconditioning. Physical therapy is on board. cc: Tonny Driscoll MD
[2016-08-29] MEDS: LIPITOR PO SCH (21:09)
[2016-08-29] MEDS: LANTUS SUBQ SCH (21:10)
[2016-08-30] MEDS: ZOSYN 3.375 GM/NS 3.375 GM/50 ML IVPB IV SCH ×4 (01:44→20:24)
[2016-08-30] MEDS: DUONEB (A & A) INH SCH ×6 (03:54→23:03)
[2016-08-30] MEDS: DILAUDID IV PRN ×3 (05:16→20:50)
[2016-08-30] MEDS: HUMULIN R SUBQ SCH ×4 (06:36→20:25)
[2016-08-30 07:21] LABS: BASO% 0.1 % (0.0-0.8); EOS# 0.22 X1000 (0.0-0.7); HEMATOCRIT 37.6 % (42.0-52.0); HEMOGLOBIN 11.5 g/dL (14.0-18.0); LYMPH# 1.43 X1000 (1.2-3.4); LYMPH% 19.6 % (20.5-51.1); MANUAL DIFF NEEDED? NO; MCH 22.9 PG (27-31); MCHC 30.6 g/dL (33-37); MCV 74.8 FL (81-99); MONO# 0.72 X1000 (0.11-0.59); MONO% 9.9 % (1.7-9.3); MPV 10.5 FL (7.4-10.4); NEUT% 67.4 % (42.2-75.2); PLT 168 X1000 (130-400); RBC 5.03 XMIL (4.7-6.1)
[2016-08-30 07:35] LABS: CALCIUM 8.8 mg/dL (8.8-10.2); POTASSIUM 4.2 mmol/L (3.5-5.1)
[2016-08-30] MEDS ORDERED: LASIX PO SCH (09:25)
--- NOTE | 2016-08-30 10:00 | PROGRESS NOTE ---
DATE: 08/30/2016 SUBJECTIVE: The patient notes he is feeling a little bit better although states he has not really been out of bed. He is having less cough. He notes that he does not wear oxygen at home. He denies any fevers or chills currently. He denies any other issues. PHYSICAL: Temperature 98, pulse 86, respiratory 20, BP 123/53, saturation 98% on 2 L. General: The patient is a well-developed elderly male who is currently in no respiratory distress. He is sleeping flatly in the bed. He is easily awakened. HEENT: Normocephalic, atraumatic. Neck supple. CV: Regular rate. Chest: Relatively clear. Abdomen is soft. Extremities: He moves all extremities. He has no clubbing, cyanosis, or edema. Neurologic: The patient is awake, alert, oriented. He is in no distress. There are no focal deficits. LABORATORY DATA: CBC essentially normal. Hemoglobin and hematocrit is stable at 11 and 37. He certainly appears to have some iron deficiency. BUN 33, creatinine 2.3, glucose 120. ASSESSMENT: 1. Elevated D-dimer. The patient has a noted elevated D-dimer on chart, although this does not appear to have been evaluated during this hospital stay. It was elevated on the recent hospitalization. He certainly has chronic kidney disease and known congestive heart failure, which certainly could be elevating that; however, given his recent pneumonia, it certainly feels as though this is warranted to be evaluated and proven to be normal. We will check an ultrasound and CTA. 2. Right middle lobe and right lower lobe pneumonia continues to improve. He is currently on Zosyn. 3. Congestive heart failure. His most recent EF documented at 25%-30% with inferior wall and global hypokinesis. 4. Chronic kidney disease. His creatinine has continued to climb from 1.6 to 2.3. It certainly appears to be a little on the dry side. We will decrease his Lasix to 40 b.i.d. as his chest x-ray is improved with less pulmonary edema. 5. Dyslipidemia. 6. Known coronary artery disease. 7. Physical deconditioning. PLAN: The patient, unfortunately, cannot undergo a CTA of his chest given his renal failure. We will check an ultrasound on his lower extremities. Scheduled him for a HIDA scan. He currently is on Effient which certainly should be enough to treat a pulmonary embolus or DVT if he did, in fact, have one. We will continue to follow. Recheck his labs in the a.m. Hopefully, home in 1-2 days. cc: Kodak Ortiz MD
[2016-08-30] MEDS: IMDUR PO SCH (10:44)
[2016-08-30] MEDS: LASIX PO SCH ×2 (10:44→20:27)
[2016-08-30] MEDS: APRESOLINE PO SCH ×3 (10:44→17:55)
[2016-08-30] MEDS: COREG PO SCH ×2 (10:44→20:27)
[2016-08-30] MEDS: ASPIRIN EC PO SCH (10:44)
[2016-08-30] MEDS: EFFIENT PO SCH (10:44)
[2016-08-30] MEDS: NEURONTIN PO SCH ×3 (10:44→20:27)
[2016-08-30] MEDS: HEPARIN SUBQ SCH ×2 (10:44→20:24)
[2016-08-30] MEDS: ROCEPHIN 1 GM/NS 1 GM/50 ML IVPB IV SCH (11:41)
[2016-08-30] MEDS: LANTUS SUBQ SCH (20:26)
[2016-08-30] MEDS: LIPITOR PO SCH (20:27)
[2016-08-31] MEDS: ZOSYN 3.375 GM/NS 3.375 GM/50 ML IVPB IV SCH ×4 (02:59→22:31)
[2016-08-31] MEDS: DUONEB (A & A) INH SCH ×6 (03:49→22:58)
[2016-08-31] MEDS: HUMULIN R SUBQ SCH ×4 (06:30→22:34)
[2016-08-31 06:47] LABS: HEMATOCRIT 37.8 % (42.0-52.0); HEMOGLOBIN 11.6 g/dL (14.0-18.0); MCH 23.1 PG (27-31); MCHC 30.7 g/dL (33-37); MCV 75.3 FL (81-99); MPV 10.3 FL (7.4-10.4); RBC 5.02 XMIL (4.7-6.1)
[2016-08-31 07:05] LABS: ALBUMIN 3.5 g/dL (3.5-5.0); CALCIUM 9.2 mg/dL (8.8-10.2); MAGNESIUM 2.4 mg/dL (1.5-2.7); POTASSIUM 4.1 mmol/L (3.5-5.1); TOTAL BILIRUBIN 0.48 mg/dL (0.20-1.00)
[2016-08-31] MEDS: IMDUR PO SCH (09:56)
[2016-08-31] MEDS: ASPIRIN EC PO SCH (09:56)
[2016-08-31] MEDS: COREG PO SCH ×2 (09:56→22:33)
[2016-08-31] MEDS: HEPARIN SUBQ SCH ×2 (09:56→22:32)
[2016-08-31] MEDS: NEURONTIN PO SCH ×3 (09:56→22:32)
[2016-08-31] MEDS: APRESOLINE PO SCH ×3 (09:57→17:10)
[2016-08-31] MEDS: EFFIENT PO SCH (09:57)
[2016-08-31] MEDS: LASIX PO SCH ×2 (10:00→22:33)
--- NOTE | 2016-08-31 10:29 | PROGRESS NOTE ---
DATE: 08/31/2016 SUBJECTIVE: Patient notes he is feeling a little bit better. He still is tired and fatigued, not getting out of bed much. Denies any current cough or congestion. He is actually sitting up in the chair this morning. Denies any fevers or chills. Denies any GI or issues. PHYSICAL EXAMINATION: Vital Signs: Temperature 99, pulse 91, respiratory rate 16, BP 104/38, saturation 97% on 2 L. General: Patient is an awake and alert male who is currently in no respiratory distress. He is sitting in the chair. Appears to be feeling better, although he states that he is not. HEENT: Normocephalic. Neck: Supple. CV: Regular rate. Chest: Relatively clear. Abdomen: Soft and nondistended. Extremities: Moves all extremities. Neurologic: No changes. LABS: Reviewed CBC, essentially normal. CMP with a BUN of 34, creatinine 2.2, glucose 143. ASSESSMENT: 1. Right middle lobe and right lower lobe pneumonia. Continue Zosyn today. Hopefully, can transition over to oral antibiotics. We will go much slower as he was just recently in the hospital and discharged. Uncertain if noncompliance at home or true medical failure was the cause. 2. Congestive heart failure, stable. 3. Chronic kidney disease. Creatinine is slightly higher than his baseline. We will decrease his Lasix to 20 twice a day as he certainly appears to be volume depleted and we will recheck his kidney function in the morning. 4. Type 2 diabetes. Continue insulin. 5. Elevated D-dimer of uncertain etiology. We will check an ultrasound of his lower extremities. This has apparently been done but I do not have a reading of this yet. Unfortunately, cannot undergo a V/Q scan on the weekend and he cannot undergo a CT scan secondary to his kidney function. This will need to continue to be followed. 6. Hopefully home in the next day or two. cc: Kodak Ortiz MD
[2016-08-31] MEDS ORDERED: LOMOTIL PO PRN (13:15)
[2016-08-31] MEDS: CULTURELLE PO SCH (14:28)
[2016-08-31] MEDS: DILAUDID IV PRN (22:33)
[2016-08-31] MEDS: LIPITOR PO SCH (22:34)
[2016-08-31] MEDS: LANTUS SUBQ SCH (22:34)
[2016-09-01] MEDS: ZOSYN 3.375 GM/NS 3.375 GM/50 ML IVPB IV SCH ×2 (03:43→09:55)
[2016-09-01] MEDS: DUONEB (A & A) INH SCH ×3 (03:49→11:15)
[2016-09-01 06:40] LABS: HEMATOCRIT 35.4 % (42.0-52.0); HEMOGLOBIN 10.9 g/dL (14.0-18.0); MCH 23.1 PG (27-31); MCHC 30.8 g/dL (33-37); MCV 75.2 FL (81-99); MPV 10.7 FL (7.4-10.4); RBC 4.71 XMIL (4.7-6.1)
[2016-09-01] MEDS: HUMULIN R SUBQ SCH ×2 (06:42→11:24)
[2016-09-01 07:10] LABS: ALBUMIN 3.5 g/dL (3.5-5.0); CALCIUM 9.2 mg/dL (8.8-10.2); POTASSIUM 3.7 mmol/L (3.5-5.1); TOTAL BILIRUBIN 0.44 mg/dL (0.20-1.00)
[2016-09-01 08:10] VITALS: BP 141/64
[2016-09-01] MEDS: NEURONTIN PO SCH (09:55)
[2016-09-01] MEDS: APRESOLINE PO SCH (09:55)
[2016-09-01] MEDS: IMDUR PO SCH (09:55)
--- NOTE | 2016-09-01 09:55 | Diag Imaging Result Document ---
PROCEDURE NAME: LUNG SCAN / VQ - 09/01/2016 LUNG VENTILATION-PERFUSION SCAN: TECHNIQUE: Ventilation images performed using 37.5 millicuries technetium-99m DTPA aerosol inhaled. Perfusion images performed using 5.6 millicuries technetium-99m MAA administered intravenously. Ventilation and perfusion images are obtained in multiple projections over the lungs. FINDINGS: There is no segmental perfusion defect identified. There is no ventilation perfusion mismatch identified. IMPRESSION: Low probability for pulmonary embolism.
[2016-09-01] MEDS: COREG PO SCH (09:56)
[2016-09-01] MEDS: ASPIRIN EC PO SCH (09:56)
[2016-09-01] MEDS: HEPARIN SUBQ SCH (09:56)
[2016-09-01] MEDS: CULTURELLE PO SCH (09:56)
[2016-09-01] MEDS: EFFIENT PO SCH (09:56)
--- NOTE | 2016-09-01 09:58 | Diag Imaging Result Document ---
PROCEDURE NAME: CHEST-2 VIEWS - 09/01/2016 CHEST 2 VIEWS: Compared with 08/29/2016. FINDINGS: Heart size is normal. There are mild interstitial infiltrates or edema at the lung bases which appear essentially stable. There is no dense consolidation, pleural effusion, or pneumothorax identified. IMPRESSION: Stable basilar interstitial infiltrates or edema.
[2016-09-01] MEDS: DILAUDID IV PRN (11:16)
[2016-09-01] MEDS ORDERED: INSULIN PEN NEEDLES ONE (11:18)
--- NOTE | 2016-09-04 14:24 | Extremity Venous Study ---
PROCEDURE NAME: Venous U/S Bilateral Legs - 08/30/2016 REFERRING PHYSICIAN: Dr. Kodak Ortiz. READING PHYSICIAN: Dr. Refugio Valenzuela. BUCKLE FRAME SHAPER: Bryan. INDICATION: Elevated D-dimer. FINDINGS: The deep and superficial veins of both lower extremities were imaged throughout their course. All are compressible with forward flow. No thrombus is appreciated. INTERPRETATION: No evidence of deep or superficial venous thrombosis in either lower extremity. cc: MD Kodak Decker MD
--- NOTE | 2016-09-11 08:53 | DISCHARGE SUMMARY ---
ADMISSION DATE: 08/26/2016 DISCHARGE DATE: 09/01/2016 FINAL DISCHARGE DIAGNOSES: 1. Pneumonia. 2. Diabetes mellitus type 2. 3. Chronic kidney disease. 4. Hypertension. HOSPITAL COURSE: Mr. Campos is a 65-year-old male, who presented to the ER with a chief complaint of shortness of breath and cough. On admission, a chest x-ray was done that revealed a right-sided pneumonia. The patient was admitted to the hospitalist service. Blood cultures were obtained, as well as a sputum culture. The patient was started on broad-spectrum antibiotics, as well as supplemental oxygen. Slowly over the course of the hospitalization, the patient's respiratory status improved. The patient was noted to have an elevated D-dimer, so bilateral venous Doppler studies were done which were noted to be negative for DVT. The patient also had a V/Q scan done that was noted to be low probability for PE. The patient continued to improve clinically and was ultimately cleared for discharge home on 09/01/2016. DISCHARGED MEDICATIONS: 1. Lantus 40 units subcutaneous at bedtime. 2. Lactobacillus 1 tablet oral daily. 3. Levaquin 500 mg p.o. every 48 hours x5 days. 4. Aspirin 81 mg p.o. daily. 5. Gabapentin 600 mg p.o. 3 times a day. 6. Vitamin D 2 50,000 units oral once a week. 7. Effient 10 mg p.o. daily. 8. Imdur 30 mg p.o. daily. 9. Coreg 3.125 mg p.o. twice a day. 10. Lipitor 40 mg p.o. at bedtime. 11. Hydralazine 25 mg p.o. 3 times a day. DISCHARGE DIET: Low-sodium, low-cholesterol diet. ACTIVITY: As tolerated. FOLLOWUP INSTRUCTIONS: The patient will need to follow up with Dr. Malou Kenney in 1 week. cc: MD Malou Chapman CRNP
== END 2016-09-01 11:30 | disposition home or self-care (01) ==
LOC: ED 12:36 → 3N 17:57 → SUATTDRO 17:57 → 3N 18:25
PROVIDERS: ATTEND Internal Medicine

== ENCOUNTER 2016-09-21 18:12 | Inpatient (IN) ==
[2016-09-21] MEDS ORDERED: ASPIRIN PO STA (18:26)
--- NOTE | 2016-09-21 18:56 | PROVIDER DOCUMENTATION ---
HPI-Respiratory General - General Chief Complaint: Shortness of Breath Stated Complaint: SOB Time Seen by Provider: 09/21/16 18:40 Source: patient Allergies/Adverse Reactions: Patient Allergies Allergy/AdvReac Type Severity Reaction Status Date / Time codeine [Codeine] Allergy Severe ITCHING Verified 08/26/16 14:43 morphine Allergy Intermediate RASH Verified 08/19/16 02:00 Home Medications: Home Medication List Medication Instructions Recorded Confirmed Last Taken Type Aspirin/Calcium Carbonate/Mag 81 mg PO QAM 04/05/15 09/21/16 09/21/16 07:00 History [Aspirin Buffered 325 mg Tab] 81 MG Gabapentin 600 mg PO TID@0900,1500,2100 07/27/15 09/21/16 09/21/16 07:00 History 600 MG Ergocalciferol (Vitamin D2) 50,000 units PO ORDERED 11/24/15 09/21/16 07:00 History [Vitamin D] 68185 UNITS ATORVAstatin [Lipitor] 40 mg PO QHS 02/04/16 09/21/16 09/20/16 20:00 History 40 MG Carvedilol 3.125 mg PO BID 02/04/16 09/21/16 09/21/16 07:00 History 3.125 MG Hydralazine [Apresoline] 25 mg PO TID 02/04/16 09/21/16 09/21/16 07:00 History 25 MG Isosorbide Mononitrate E.r. [Imdur] 30 mg PO DAILY 02/04/16 09/21/16 09/21/16 07 :00 History 30 MG Prasugrel [Effient] 10 mg PO DAILY 02/04/16 09/21/16 09/21/16 07:00 History 10 MG Insulin Glargine [Lantus] 40 unit SUBQ QHS #5 insuln.pen 09/01/16 09/21/1609/20 20:00 Rx 40 UNIT Lactobacillus Rhamnosus GG 1 each PO DAILY #30 capsule 09/01/16 09/21/16 07:00 Rx [Culturelle] 1 EACH Levofloxacin [Levaquin] 500 mg PO Q48H #5 tablet 09/01/16 09/21/16 09/21/16 07: 00 Rx 500 MG - History of Present Illness-Resp Nature of Presenting Problem: 65 yom SOB x2 days productive cough, denies any chest pain. said patient had fever yesterday. Quality of Pain: reports: none Severity in ED: reports: mild Cough Quality/Degree: reports: moderate, productive cough Episode Frequency: occasional episodes Current Respiratory Medication Therapy: Initiated see nurses note Modifying Factors: improves with: oxygen, rest, sitting upright Associated Symptoms: reports: cough, fever/chills, short of breath Similar Symptoms Previously?: Yes Recently seen or treated by another doctor?: No Review of Systems - Adult - REVIEW OF SYSTEMS - ADULT Constitutional: reports: see HPI, chills, fever Eyes: reports: no symptoms reported Ears, Nose, Mouth & Throat: reports: no symptoms reported Cardiovascular: reports: see HPI, edema Respiratory: reports: see HPI, cough, shortness of breath Gastrointestinal: reports: no symptoms reported Genitourinary: reports: no symptoms reported Musculoskeletal: reports: no symptoms reported Integumentary: reports: no symptoms reported Neurological: reports: no symptoms reported Psychiatric: reports: no symptoms reported Endocrine: reports: no symptoms reported Hematologic/Lymphatic: reports: no symptoms reported Allergic/Immunologic: reports: no symptoms reported All Other Systems: Reviewed and Negative Past History - Adult - PAST MEDICAL HISTORY-ADULT Review of Records: reports: Old Records Reviewed, Nursing Assessment Review, Medications Reviewed, Social history reviewed & non-contributory. Major Childhood Illnesses: reports: denies history Cardiovascular: reports: CAD, CHF, HTN, CO Respiratory: reports: COPD Gastrointestinal: reports: denies history Genitourinary: reports: denies history Musculoskeletal: reports: other (neuropathy) Neurological: reports: denies history Psychiatric: reports: denies history Endocrine/Immune: 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), Diabetes Other Conditions: reports: other (2 stents in bottom of leg) - PRIOR SURGERIES/PROCEDURES Surgical/Procedure History: reports: appendectomy, other (femoral stent) - PRIOR HOSPITALIZATIONS Prior Hospitalizations: reports: for similar symptoms - IMMUNIZATION STATUS Childhood Immunizations: See Nurse Assessment Flu Vaccine: See Nurse Assessment - FAMILY HISTORY Family History: reviewed, not pertinent Physical Exam-General - PHYSICAL EXAM-ADULT Initial Vital Signs Reviewed: Yes - CONSTITUTIONAL General Appearance: appears well, alert, mild distress (Due to SOB) - EYES Eyes: PERRL/EOMI, pink conjunctivae - HEAD, EARS, NOSE, MOUTH & THROAT HENMT: normocephalic/atraumatic, moist mucous membranes, normal ENT inspection - NECK Neck: non-tender, full range of motion, supple, normal inspection - RESPIRATORY Respiratory: chest non-tender, no pleuratic chest pain, no respiratory distress , no accessory muscle use, decreased breath sounds, rales, rhonchi - CARDIOVASCULAR Cardiovascular: normal peripheral pulses, regular rate, rhythm, no gallop, no JVD, no murmur. negative: no edema (very mild edema to bilateral feet and ankles) - GASTROINTESTINAL (ABDOMEN) Abdominal Exam: normal bowel sounds, non tender, soft, no organomegaly, no pulsatile mass - LYMPHATIC Lymphatic: no adenopathy - MUSCULOSKELETAL Back Exam: normal inspection, no CVA tenderness, no vertebral tenderness Extremity: normal range of motion, non-tender, normal gait, normal inspection, no calf tenderness, normal capillary refill, pelvis stable - SKIN Integumentary: normal color, normal turgor, warm/dry - NEUROLOGIC Neurologic: grossly normal, no motor/sensory deficits - PSYCHIATRIC Psych/Mental Status: oriented x 3 Progress - PLAN OF CARE/RESULTS Progress/Plan/Lab Results: Vital Signs - 8 hr 09/21/16 18:22 Temperature 97.8 F Pulse Rate 80 Respiratory Rate 26 H Blood Pressure 127/62 O2 Sat by Pulse Oximetry 87 L Laboratory Results - last 24 hr 09/21/16 09/21/16 09/21/16 18:36 18:36 18:36 WBC 5.69 RBC 4.98 Hgb 11.4 L Hct 36.7 L MCV 73.7 L MCH 22.9 L MCHC 31.1 L RDW Std Deviation 18.6 H Plt Count 122 L MPV 10.6 H Immature Gran % (Auto) 0.0 Neut % (Auto) 79.1 H Lymph % (Auto) 11.2 L [place] % (Auto) 6.3 Eos % (Auto) 3.2 Baso % (Auto) 0.2 Immature Gran # (Auto) 0.00 Neut # (Auto) 4.50 Lymph # (Auto) 0.64 L [place] # (Auto) 0.36 Eos # (Auto) 0.18 Baso # (Auto) 0.01 PT INR PTT (Actin FS) D-Dimer 0.80 H Sodium 133 L Potassium 4.8 Chloride 98 Carbon Dioxide 24 L Anion Gap 11 BUN 18 Creatinine 1.6 H Estimated GFR/1.73 m2 44 BUN/Creatinine Ratio 11 Glucose 272 H Calculated Osmolality 278 Calcium 8.0 L Magnesium 1.9 Total Bilirubin 0.41 AST 8 L ALT 5 L Alkaline Phosphatase 76 Creatine Kinase 27 Troponin T Qmb-G-Wpzpxylpwub Pept Total Protein 6.1 L Albumin 3.3 L Globulin 2.8 Albumin/Globulin Ratio 1.2 Plasma Lactate 09/21/16 09/21/16 09/21/16 18:36 18:36 18:36 WBC RBC Hgb Hct MCV MCH MCHC RDW Std Deviation Plt Count MPV Immature Gran % (Auto) Neut % (Auto) Lymph % (Auto) [place] % (Auto) Eos % (Auto) Baso % (Auto) Immature Gran # (Auto) Neut # (Auto) Lymph # (Auto) [place] # (Auto) Eos # (Auto) Baso # (Auto) PT 11.4 INR 1.08 PTT (Actin FS) 28.3 D-Dimer Sodium Potassium Chloride Carbon Dioxide Anion Gap BUN Creatinine Estimated GFR/1.73 m2 BUN/Creatinine Ratio Glucose Calculated Osmolality Calcium Magnesium Total Bilirubin AST ALT Alkaline Phosphatase Creatine Kinase Troponin T < 0.010 Ryi-K-Zptxayivmzp Pept 85271 H Total Protein Albumin Globulin Albumin/Globulin Ratio Plasma Lactate 09/21/16 18:36 WBC RBC Hgb Hct MCV MCH MCHC RDW Std Deviation Plt Count MPV Immature Gran % (Auto) Neut % (Auto) Lymph % (Auto) [place] % (Auto) Eos % (Auto) Baso % (Auto) Immature Gran # (Auto) Neut # (Auto) Lymph # (Auto) [place] # (Auto) Eos # (Auto) Baso # (Auto) PT INR PTT (Actin FS) D-Dimer Sodium Potassium Chloride Carbon Dioxide Anion Gap BUN Creatinine Estimated GFR/1.73 m2 BUN/Creatinine Ratio Glucose Calculated Osmolality Calcium Magnesium Total Bilirubin AST ALT Alkaline Phosphatase Creatine Kinase Troponin T Caw-V-Mmjsgunzipo Pept Total Protein Albumin Globulin Albumin/Globulin Ratio Plasma Lactate 1.1 Orders Category Date Time Status Cardiac Monitoring DIRECTED Care 09/21/16 18:27 Active Oxygen Therapy- ED Nursing DIRECTED Care 09/21/16 18:27 Active Saline Loc NOW Care 09/21/16 18:27 Active CHEST-2 VIEWS [RAD] Stat Exams 09/21/16 18:27 Completed BLOOD CULTURE [BLDCUL] Stat Lab 09/21/16 19:07 Results CBC WITH ELECTRONIC DIFF [HEME] Stat Lab 09/21/16 18:36 Completed CK PROFILE [SP CHEM] Stat Lab 09/21/16 18:36 Completed COMPREHENSIVE METABOLIC PANEL [CHEM] Stat Lab 09/21/16 18:36 Completed D-DIMER [CHEM] Stat Lab 09/21/16 18:36 Completed LACTATE, PLASMA [CHEM] Stat Lab 09/21/16 18:36 Completed MAGNESIUM [CHEM] Stat Lab 09/21/16 18:36 Completed PRO B-NATRIURETIC PEPTIDE Stat Lab 09/21/16 18:36 Completed PROTIME WITH INR [COAG] Stat Lab 09/21/16 18:36 Completed PTT [COAG] Stat Lab 09/21/16 18:36 Completed TROPONIN T Stat Lab 09/21/16 18:36 Completed Albuterol 2.5MG/Ipratrop 0.5MG [Duoneb (A & A)] Med 09/21/16 18:59 Discontinued 3 ml INH NOW ONE Aspirin Med 09/21/16 18:26 Discontinued 325 mg PO STAT STA CefTRIAXONE 1 GM/NS [Rocephin 1 gm/Ns] Med 09/21/16 19:42 Active 1 gm in 50 ml IV NOW Furosemide [Lasix] Med 09/21/16 19:42 Discontinued 40 mg IV NOW ONE Methylprednisolone Sod Succ [Solu-Medrol] Med 09/21/16 19:42 Discontinued 125 mg IV NOW ONE Aerosol Treatments Routine Oth 09/21/16 18:59 Active Aerosol Treatments Stat Oth 09/21/16 18:59 Active EKG [EKG] Stat Ther 09/21/16 18:27 Ordered Result Diagrams: 09/21/16 18:36 09/21/16 18:36 - XRAY 1 XRAY Study: Chest Impression: See EMR Report (RUL pneumonia, with additional pulmonary edema can not be excluded.) - CONSULTS/PCP/HOSPITALIST Notification #1 *Consult/PCP/Hospitalist*: Dr. Ta Time Discussed: 19:57 Consult Disposition: Will see in ED, Admit Departure - Departure Time of Disposition Decision: 20:00 DIAGNOSIS: Congestive heart failure (CHF) Qualifiers: Congestive heart failure type: unspecified congestive heart failure type Congestive heart failure chronicity: unspecified congestive heart failure chronicity Qualified Code(s): I50.9 - Heart failure, unspecified Pneumonia Qualifiers: Pneumonia type: due to unspecified organism Laterality: right Lung location: upper lobe of lung Qualified Code(s): J18.1 - Lobar pneumonia, unspecified organism Disposition: ADMITTED INPATIENT 09 Certified Medical Emergency: Emergent Condition: Stable Referrals and Follow-Ups: Malou Kenney CRNP [Primary Care Provider] - - Critical Care Note This patient required my direct & personal management of CC.: No Attestation - Physician/ NIKKI Attestation Patient care was provided by Advanced Practice Provider:: Yes Advanced Practice Provider:: Jeffery Pro Advanced Practice Provider documentation review:: The Mid-level provider documentation, treatment plan and medical decision making was reviewed by the physician who agrees with all treatment and medical decision making by the MLP.
[2016-09-21] MEDS ORDERED: DUONEB (A & A) INH ONE (18:59)
[2016-09-21 19:01] LABS: INR 1.08; PROTIME 11.4 Seconds (9.2-11.7); PTT 28.3 Seconds (22.0-36.0)
[2016-09-21 19:02] LABS: BASO% 0.2 % (0.0-0.8); EOS# 0.18 X1000 (0.0-0.7); EOS% 3.2 % (0.0-10.0); HEMATOCRIT 36.7 % (42.0-52.0); HEMOGLOBIN 11.4 g/dL (14.0-18.0); LYMPH# 0.64 X1000 (1.2-3.4); LYMPH% 11.2 % (20.5-51.1); MANUAL DIFF NEEDED? NO; MCH 22.9 PG (27-31); MCHC 31.1 g/dL (33-37); MCV 73.7 FL (81-99); MONO# 0.36 X1000 (0.11-0.59); MONO% 6.3 % (1.7-9.3); MPV 10.6 FL (7.4-10.4); NEUT% 79.1 % (42.2-75.2); PLT 122 X1000 (130-400); RBC 4.98 XMIL (4.7-6.1)
--- NOTE | 2016-09-21 19:04 | Diag Imaging Result Doc PS360 ---
EXAM: CHEST-2 VIEWS HISTORY: CP TECHNIQUE: PA and lateral chest COMMENT: There has been dramatic change in the appearance the chest since 09/01/2016 with patchy alveolar opacities bilaterally particularly in the lower lobes and right upper lobe. The heart size and pulmonary vascularity are within normal limits. IMPRESSION: Pneumonia particularly in the right upper lobe. The possibility of additional pulmonary edema cannot be excluded. Electronically signed by Jesse Ngo 09/21/2016 7:01 PM
[2016-09-21 19:16] LABS: ALBUMIN 3.3 g/dL (3.5-5.0); MAGNESIUM 1.9 mg/dL (1.5-2.7); POTASSIUM 4.8 mmol/L (3.5-5.1); TOTAL BILIRUBIN 0.41 mg/dL (0.20-1.00); TOTAL PROTEIN 6.1 g/dL (6.3-8.3)
[2016-09-21] MEDS ORDERED: LASIX IV ONE (19:42)
[2016-09-21] MEDS ORDERED: SOLU-MEDROL IV ONE (19:42)
[2016-09-21] MEDS ORDERED: ROCEPHIN 1 GM/NS 1 GM/50 ML IVPB IV ONE (19:42)
[2016-09-21] MEDS: LASIX IV SCH (21:00)
--- NOTE | 2016-09-21 21:00 | Diag Imaging Result Doc PS360 ---
EXAM: CT THORAX W/O CONTRAST HISTORY: recurrent right upper lobe pna TECHNIQUE: CT of the chest without contrast with dose reduction (clarity.) COMMENT: There is emphysematous change. There are patchy areas of alveolar opacity present bilaterally throughout both lower lobes the lingula and in particular the right upper lobe. There are also patchy opacities in the middle lobe. There are two nodular opacities seen on image 52 in the anterior right upper lobe neither is clearly calcified and both are round 8 mm in diameter. There are bilateral pleural effusions. There is extensive coronary calcification. There is aorticopulmonary window and right paratracheal adenopathy. The regional skeleton appears to be intact. There are no previous thoracic studies. The portion of the chest which was included on the CT angiogram of 06/11/2012 demonstrated none of the opacity seen in the lung bases present today. IMPRESSION: Bilateral bronchopneumonia. Possibility of coexistent pulmonary edema cannot be excluded. Bilateral pleural effusions. Nonspecific right upper lobe pulmonary nodules. Electronically signed by Jesse Ngo 09/21/2016 8:58 PM
[2016-09-21] MEDS ORDERED: TEFLARO 600 MG in NS 250 ML IV SCH (21:15)
[2016-09-21] MEDS: ZOSYN 3.375 GM/NS 3.375 GM/50 ML IVPB IV SCH (21:34)
[2016-09-21] MEDS ORDERED: DUONEB (A & A) INH PRN (21:36)
[2016-09-21] MEDS ORDERED: ZOFRAN IV PRN (21:36)
--- NOTE | 2016-09-21 21:52 | HISTORY AND PHYSICAL ---
PRIMARY CARE PHYSICIAN: ANTONETTE Shirley. CHIEF COMPLAINT: Difficulty in breathing. HISTORY OF PRESENT ILLNESS: This is a 65-year-old male with past medical history of CHF, hypertension, chronic kidney disease, diabetes type 2 who basically presented to the emergency department complaining of 3-day history of difficulty in breathing. The patient noted that he was coughing more and more in the last 3 days and also he was bringing up some greenish sputum. Patient denies having any fever. He was basically admitted to the hospital last time for right-sided pneumonia and CHF exacerbation and as per patient the home medication Lasix was discontinued last time. He denies any chest pain. He just reports shortness of breath. Here in the ER upon ER evaluation he was found to have an O2 saturation of 87 on room air and also he was found to have a high proBNP of 10,000 so he is going to be admitted for further evaluation and treatment. PAST MEDICAL HISTORY: 1. Systolic congestive heart failure with ejection fraction 30-35%. 2. Hypertension. 3. Diabetes type 2 insulin-dependent. 4. Chronic kidney disease stage 2. 5. Coronary artery disease status post myocardial infarction 2000. PAST SURGICAL HISTORY: 1. Cardiac stenting 2 years ago. 2. Appendectomy. SOCIAL HISTORY: Patient denies drinking alcohol, smoking tobacco or using illicit drugs. He lives with an he quit smoking 7 years ago. ALLERGIES: Patient is allergic to codeine and morphine. REVIEW OF SYSTEMS: Eleven systems were reviewed and all symptoms are related to H and P. PHYSICAL EXAMINATION: VITALS: Temperature 97.8 degrees, heart rate 85, respiratory rate 15, blood pressure 127/62, O2 saturation 96% on 2 L nasal cannula. GENERAL EXAMINATION: This is a chronically ill-looking 65-year-old male lying in bed in no acute distress. HEENT: Head is normocephalic, atraumatic. Anicteric sclerae and pale conjunctivae. Mucous membranes moist. NECK: Supple. No JVD noted. No carotid bruits. No lymphadenopathy. No thyromegaly. CARDIOVASCULAR: S1, S2 heard. No murmurs, gallops, or rubs. Regular rate and rhythm. RESPIRATORY: There is some crackles in both bases. Patient is not using any accessory muscles or having work of breathing. ABDOMEN: Soft, nontender to palpation. Bowel sounds present. No organomegaly. EXTREMITIES: Mild pitting edema 2+ in both lower extremities. Peripheral pulses present in both legs. NEUROLOGICAL: Patient alert, oriented x3. Able to move 4 extremities. Cranial nerves 2-12 grossly normal. LABORATORY DATA: CBC shows hemoglobin 11.4, hematocrit 36.7, platelets 122,000 and D-dimer 0.8. BMP remarkable for creatinine 1.6, glucose 272. ASSESSMENT AND PLAN: 1. Acute respiratory failure. 2. Right upper lobe pneumonia. 3. Congestive heart failure exacerbation. 4. Hypertension. 5. Diabetes type 2. 6. Chronic kidney disease. 7. Coronary artery disease. PLAN: The patient is going to be admitted to the hospital because of shortness of breath of multifactorial origin. This patient has in the x-ray and also physical examination CHF exacerbation. For unknown reason this patient was discontinued with Lasix. We are going to provide a total of 80 mg of Lasix and will continue with Lasix 40 mg IV b.i.d. We are going to provide oxygen supplementation. Because x-ray also revealed right upper lobe pneumonia and considering this is the second time that this patient has this finding we are going to order a CT of the chest to make sure there is nothing else going on in that side like a malignancy considering his history of COPD. In the meantime we are going to start this patient on ceftriaxone 1 g IV q.24 hours and we are going to consult Dr. Marcum to assisting us in the management of this patient. For COPD we are going to continue with DuoNeb every 4 hours scheduled. For diabetes we are going to use insulin sliding scale and his basal insulin Lantus. For CKD we are going to check BMP daily. For coronary artery disease we are going to continue home medications. Further recommendations to follow according to the clinical situation of the patient. cc: Neymar Pollock MD
[2016-09-21] MEDS: DUONEB (A & A) INH SCH (22:31)
[2016-09-22] MEDS: LOVENOX SUBQ SCH ×2 (00:01→21:25)
[2016-09-22] MEDS: COREG PO SCH ×3 (00:01→21:04)
[2016-09-22] MEDS: LANTUS SUBQ SCH ×2 (00:02→21:05)
[2016-09-22] MEDS: LIPITOR PO SCH ×2 (00:03→21:04)
[2016-09-22] MEDS ORDERED: NITROGLYCERIN TOP ONE (01:38)
[2016-09-22] MEDS: DUONEB (A & A) INH SCH ×7 (03:18→23:26)
[2016-09-22 03:53] LABS: ALLEN TEST YES; BE -0.2 mmoll (-3.0-3.0); BLOOD TYPE ARTERIAL; DRAW SITE R RADIAL; METHB 1.3 % (0.0-1.5); PCO2(98.6) 41 mmHg (35-45); PO2(98.6) 62 mmHg (60-100); SAMPLE BLOOD; SAO2 93.7 % (95.0-100.0); THB 12.6 g/dL (11.5-17.4); pH(98.6) 7.39 (7.35-7.45)
[2016-09-22 03:54] LABS: MODALITY CANNULA
[2016-09-22] MEDS: ZOSYN 3.375 GM/NS 3.375 GM/50 ML IVPB IV SCH (04:56)
--- NOTE | 2016-09-22 05:52 | EKG Report ---
Test Performed on : 09/22/2016 01:21:20 AM Test Reason : chest pain Blood Pressure : / mmHG Vent. Rate : 100 BPM Atrial Rate : 100 BPM P-R Int : 170 ms QRS Dur : 110 ms QT Int : 374 ms P-R-T Axes : 038 039 012 degrees QTc Int : 482 ms Sinus rhythm. with occasional premature ventricular complexes. Left ventricular hypertrophy with repolarization abnormality Prolonged QT Abnormal ECG When compared with ECG of 21-SEP-2016 18:32, premature ventricular complexes. are now present Borderline criteria for Inferior infarct are no longer present QT has lengthened Confirmed by Ymii Woodard MD ([id number]) on 09/22/2016 10:57:01 AM
[2016-09-22] MEDS: HUMALOG SUBQ SCH ×7 (06:21→23:43)
[2016-09-22 06:29] LABS: EOS# 0.01 X1000 (0.0-0.7); EOS% 0.3 % (0.0-10.0); HEMATOCRIT 38.3 % (42.0-52.0); IMM GRAN# 0.02 X1000 (0.0-0.04); IMM GRAN% 0.6 % (0.0-0.5); LYMPH# 0.26 X1000 (1.2-3.4); LYMPH% 8.3 % (20.5-51.1); MANUAL DIFF NEEDED? YES; MCH 22.6 PG (27-31); MCHC 31.3 g/dL (33-37); MCV 72.3 FL (81-99); MONO# 0.04 X1000 (0.11-0.59); MONO% 1.3 % (1.7-9.3); MPV 11.2 FL (7.4-10.4); NEUT% 89.5 % (42.2-75.2); PLT 126 X1000 (130-400)
[2016-09-22 06:50] LABS: CALCIUM 8.1 mg/dL (8.8-10.2); POTASSIUM 4.4 mmol/L (3.5-5.1)
--- NOTE | 2016-09-22 07:13 | CONSULTATION ---
DATE OF CONSULTATION: 09/22/2016 CONCLUSION: The patient is admitted now for the 3rd time in the past month for pneumonia. I suspect most likely that he has pneumonia that was just not cleared up rather than getting a new pneumonia 3 separate times. I think it is possible that the patient has an immune deficiency, specifically an immunoglobulin deficiency. RECOMMENDATIONS: I have switched the patient from ceftaroline and Zosyn to p.o. Zyvox and IV cefepime. Also, I have ordered a sputum for Gram stain and culture. Also, I have ordered immunoglobulin levels. DISCUSSION: The patient tells me that he has been admitted 3 times in the past month because of cough and shortness of breath. He tells me each time, he does have pneumonia. The patient does not remember being around anybody who has been ill. For the most part, his health is fairly good. He does not have a history of having recurrent infections. PAST MEDICAL HISTORY/REVIEW OF SYSTEMS: Eyes and Ears: Patient has decreased hearing. Neck: No stiffness. Respiratory: Other than his most recent episodes of pneumonia, the patient did not have a history of coughing or being short of breath. Cardiovascular: No chest pain or palpitations. GI: No nausea, vomiting, or diarrhea. Genitourinary: No dysuria or flank pain. Endocrine: The patient is diabetic but he does not have thyroid disease. Hematologic: No history of anemia or bleeding tendency. Neurologic: No seizures or loss of motor or sensory function. The patient, however, does have decreased hearing. Integument: No rash. The remainder of the patient's review of systems was completed and was negative. PREVIOUS HOSPITALIZATIONS AND OPERATIONS: He has been admitted for 3 times now in the past month for pneumonia. He has had an appendectomy, a large cyst removed from his shoulder and neck, placement of coronary artery stents, and myocardial infarction. MEDICAL DISEASES: Positive for diabetes mellitus, hypertension, myocardial infarction, COPD, end- stage renal disease, and hyperlipidemia. INFECTIOUS DISEASE HISTORY: Positive for pneumonia, recurrent in the past 3 months. Negative for UTI. FAMILY HISTORY: Positive for COPD and myocardial infarction. [place]IAL HISTORY[place] He stopped smoking cigarettes 6 years ago. He does not drink alcoholic beverages or abuse drugs. He is . He is disabled. The patient does not have any pets at home. HOME MEDICATIONS: Include the following: Effient, Levaquin, Culturelle, Imdur , Lantus insulin, Apresoline, gabapentin, vitamin D, and Lipitor. DIAGNOSTIC DATA: The patient's CBC shows a white count of 5690, hemoglobin 11.4 , and platelet count was 122,000. Blood gases show a pH of 7.39, a PO2 of 62, pCO2 of 41. Creatinine is 1.6. GFR is 44. Liver function studies are normal. The patient's CAT scan of the chest shows bilateral pneumonia and pleural effusion. The possibility of congestive heart failure cannot be ruled out. PHYSICAL EXAMINATION: Vital Signs: Temperature is 97.5 degrees, pulse 98, respirations 16, blood pressure 142/69, patient weighs 165 pounds. General: This is a somewhat ill- appearing, elderly male. He is in no acute distress at this time. Head, Eyes, Ears, Nose, and Throat: He has decreased hearing. He can see near objects. He is edentulous. There is no drainage from the nose or ears. Neck: No meningismus. Lungs: There were bibasilar inspiratory rales. Heart rate was regular. Abdomen: Soft and nontender. Neurologic: Patient is awake. He can move his extremities. There is no tremor. His sensation is intact to touch. His memory , as regarding his medical history, is intact. Cardiovascular: Heart rate is regular. There was no leg edema. Integument: No rash noted. Thank you for the consult. cc: El[facility] Marcum [facility]
--- NOTE | 2016-09-22 07:35 | EKG Report ---
Test Performed on : 09/22/2016 06:57:04 AM Test Reason : Chest Pain Blood Pressure : / mmHG Vent. Rate : 080 BPM Atrial Rate : 080 BPM P-R Int : 172 ms QRS Dur : 110 ms QT Int : 370 ms P-R-T Axes : 051 017 250 degrees QTc Int : 426 ms Normal sinus rhythm. Possible Left atrial enlargement Inferior infarct , age undetermined ST \T\ T wave abnormality, consider lateral ischemia Abnormal ECG When compared with ECG of 22-SEP-2016 01:21, (Unconfirmed) premature ventricular complexes. are no longer present Inferior infarct is now present Inverted T waves have replaced nonspecific T wave abnormality in Inferior leads QT has shortened Confirmed by Vance SIMON, Yimi Hernandez ([id number]) on 09/22/2016 10:57:32 AM
[2016-09-22 07:46] LABS: BANDS 2 % (0-1); LYMPHS 14 % (21-51); MONO 1 % (1-9)
--- NOTE | 2016-09-22 08:12 | Diag Imaging Result Doc PS360 ---
EXAM: LUNG SCAN / VQ INDICATION: suspected PE COMPARISON: 09/01/2016 FINDINGS: 40.1 mCi of technetium 99 DTPA was administered for the ventilation portion of the scan. 5.9 mCi of technetium 99 MAA was administered for the perfusion portion of the scan. There is a questionable small matched nonsegmental perfusion defect seen on the right anterior oblique image near the center of the lung. No unmatched perfusion defects are appreciated. There is a small amount of condense radiotracer at the proximal trachea. Ventilation portion of the scan is essentially unremarkable, otherwise. IMPRESSION: Low probability of pulmonary embolism. Electronically signed by Douglas Sheikh 09/22/2016 8:10 AM
[2016-09-22] MEDS ORDERED: EFFIENT PO SCH (09:00)
[2016-09-22] MEDS: MAXIPIME 2 GM/NS 2 GM/100 ML IVPB IV SCH ×2 (09:17→21:06)
[2016-09-22] MEDS: LASIX IV SCH ×2 (09:18→21:05)
[2016-09-22] MEDS: PRILOSEC PO SCH (09:18)
[2016-09-22] MEDS: APRESOLINE PO SCH ×3 (09:18→17:38)
[2016-09-22] MEDS: CULTURELLE PO SCH (09:18)
[2016-09-22] MEDS: ASPIRIN PO SCH (09:18)
[2016-09-22] MEDS: ZYVOX PO SCH ×2 (09:18→21:04)
[2016-09-22] MEDS: IMDUR PO SCH (09:19)
--- NOTE | 2016-09-22 12:38 | Diag Imaging Result Doc PS360 ---
EXAM: CHEST-2 VIEWS INDICATION: pneumonia COMPARISON: 09/21/2016 FINDINGS: There has been interval significant improvement of the bilateral infiltrates seen on the recent prior study. There is still residual infiltrate seen at the right mid and lower lung zone and the left lung base. No new consolidations are appreciated. Cardiac silhouette is stable. IMPRESSION: Interval significant improvement of bilateral infiltrates as described. Electronically signed by Douglas Sheikh 09/22/2016 12:36 PM
--- NOTE | 2016-09-22 13:25 | PROGRESS NOTE ---
DATE: 09/22/2016 SUBJECTIVE: This is a 65-year-old with a past medical history of congestive heart failure, hypertension, chronic kidney disease, diabetes mellitus type 2 who presented to the emergency department with a 3-day history of difficulty breathing. The patient noted that he was coughing more and more the last 3 days. He was bringing up some greenish sputum by his report, but then he also told us he had some reddish type sputum. Denied any fever, basically admitted to the hospital with right-sided pneumonia and congestive heart failure exacerbation and pulmonary hypertension. Lasix was discontinued at that time. [place] proBNP [place] 13141. The patient had a V/Q scan, which was low probability. CT scan showed right upper lobe pneumonia and also some pulmonary venous hypertension. He feels much better today, wants to go home. OBJECTIVE: Vital signs: Temperature 97.7 degrees, pulse 90, respirations 16, blood pressure 157/74. HEENT: Pupils are equal, round, lungs are clear in all lung denis. Cardiovascular: Regular rhythm and rate without murmur or S3. Abdomen: Soft. Skin is warm and dry. Blood sugar is 488, 396. ASSESSMENT AND PLAN: 1. Right upper lobe pneumonia, better clinically. Continue present antibiotics. 2. Acute respiratory failure. 3. Congestive heart failure. Has an ejection fraction documented at 35%. 4. Pulmonary venous hypertension on CT scan and clinically a little bit of pulmonary venous hypertension. He has diuresed and feels better. 5. Hypertension. 6. Diabetes mellitus type 2. Sugars running high at this time. See what he does on a sliding scale. 7. Chronic kidney disease. 8. Coronary artery disease. Aware. No sign of active ischemia at this time. DISCHARGE INSTRUCTIONS: Review of his orders, he is on ceftriaxone 1 g q.24 hours, Methylprednisolone, was given 1 dose 125, and he has got a low dose of Lasix 40 mg yesterday, aspirin 325 mg a day, albuterol, ipratropium treatment. He is on Effient 10 mg daily, Zofran 4 mg IV q.4 hours p.r.n., Prilosec 40 mg a day, cefepime 2 g q.[address] Marcum, and he is on linezolid 600 mg q.12 hours, lactobacillus 1 a day, isosorbide mononitrate 30 mg a day, insulin glargine or Lantus 40 units at bedtime, hydralazine 25 mg t.i.d., Lasix 40 mg IV b.i.d., and vitamin D 12973 units q. week, Coreg 3.125 mg a day, Lipitor 40 mg a day, aspirin at 481 mg a day. We will see if he needs O2 at home. Check another chest x-ray in the morning and discuss with Dr. Marcum about discharge. cc: Jose Montesinos MD
--- NOTE | 2016-09-22 17:05 | CONSULTATION ---
DATE OF CONSULTATION: 09/22/2016 IMPRESSIONS: 1. Acute on chronic systolic heart failure. 2. Severe ischemic cardiomyopathy. 3. Chronic kidney disease, creatinine 1.6. 4. Type 2 diabetes mellitus. 5. Hypertension. 6. Recent pneumonia. RECOMMENDATIONS: 1. Continue diuresis with intravenous Lasix. 2. Continue carvedilol at current dose for now. Consider increasing dose as patient improves. 3. Consideration ultimately to be given to use of angiotensin converting enzyme inhibitor following diuresis. 4. Conservative cardiovascular plans overall. HISTORY: This 65-year-old white male with a past history of severe ischemic cardiomyopathy, previous myocardial infarction, and multivessel coronary disease managed medically with salvage drug-eluting stent to diagonal in December 2015, chronic kidney disease, diabetes mellitus type 2, and hypertension, as well as recent pneumonia, was admitted through the emergency room with progressive dyspnea symptoms, orthopnea, and cough productive of pink sputum. The patient was recently hospitalized and treated for pneumonia. At time of discharge diuretic therapy was not continued. He relates a 4-day history of progressive dyspnea symptoms and orthopnea. He has had cough productive pink sputum. There has been no angina. He has not noted any fever. He came to the emergency room and was found have signs of acute exacerbation of chronic congestive heart failure. He has been started on a diuretic therapy and diuresis has been initiated. PAST MEDICAL HISTORY: 1. Atherosclerotic coronary disease and severe ischemic cardiomyopathy. 2. Hypertension. 3. Chronic kidney disease. 4. Type 2 diabetes mellitus. 5. History of atherosclerotic coronary disease, previous myocardial infarction, and multivessel coronary atherosclerosis. Patient managed conservatively and not felt to be a candidate for coronary bypass. 6. Hyperlipidemia. 7. Chronic obstructive pulmonary disease. PAST SURGICAL HISTORY: Includes previous angioplasty/stent to proximal diagonal December 2015 and appendectomy. ALLERGIES: He is allergic or intolerant to codeine. MEDICATIONS: Prior to admission as listed. SOCIAL HISTORY: He is and disabled. Lives with his . Does not smoke or use alcohol. FAMILY HISTORY: Is noteworthy in that his father of sudden at age 53. REVIEW OF SYSTEMS: Pulmonary: Noteworthy for dyspnea, cough, and orthopnea. Gastrointestinal: Negative. Constitutional: Negative. Remainder of review of systems negative/noncontributory with 14 total systems reviewed. PHYSICAL EXAMINATION: General: This is a pleasant, older white male, in no distress, on supple oxygen per nasal cannula. Vital signs: Blood pressure 155/67, heart rate 63 and regular. HEENT: Extraocular movements intact. Mucous membranes moist. Neck: Supple with estimated jugular venous pressure 10-12 cm. There are no carotid bruits. Chest: Auscultation of the chest reveals bibasilar inspiratory crackles. Cardiac Exam: Reveals a regular rate and rhythm without appreciable murmur or gallop. Abdomen: Soft, nontender. Bowel sounds normal. Extremities: Demonstrate very mild pretibial edema, left greater than right. Neurologic: Reveals him to be alert, fully oriented. Speech is fluent. Moves all 4 extremities equally well. Skin: Warm and dry. Psychiatric: Exam is noted to be appropriate. DIAGNOSTIC STUDIES: ECG demonstrates sinus rhythm with occasional premature ventricular complex, left hypertrophy with repolarization abnormality, and borderline prolonged QT interval. cc: Gilbert Dolan MD
[2016-09-23] MEDS: HUMALOG SUBQ SCH ×2 (02:59→06:35)
[2016-09-23] MEDS: DUONEB (A & A) INH SCH ×2 (03:40→08:09)
[2016-09-23 05:49] LABS: CALCIUM 8.4 mg/dL (8.8-10.2); POTASSIUM 3.6 mmol/L (3.5-5.1)
[2016-09-23 06:12] LABS: BASO% 0.1 % (0.0-0.8); EOS# 0.06 X1000 (0.0-0.7); EOS% 0.6 % (0.0-10.0); HEMATOCRIT 38.6 % (42.0-52.0); HEMOGLOBIN 11.8 g/dL (14.0-18.0); LYMPH# 0.92 X1000 (1.2-3.4); LYMPH% 9.3 % (20.5-51.1); MANUAL DIFF NEEDED? NO; MCHC 30.6 g/dL (33-37); MCV 71.9 FL (81-99); MONO% 7.1 % (1.7-9.3); MPV 10.9 FL (7.4-10.4); NEUT% 82.9 % (42.2-75.2); PLT 158 X1000 (130-400); RBC 5.37 XMIL (4.7-6.1)
[2016-09-23] MEDS: PRILOSEC PO SCH (06:35)
[2016-09-23] MEDS ORDERED: NORCO-5 PO PRN (07:05)
[2016-09-23] MEDS ORDERED: COREG PO SCH (09:00)
[2016-09-23] MEDS ORDERED: PLAVIX PO SCH (09:00)
--- NOTE | 2016-09-23 09:06 | PROGRESS NOTE ---
DATE: 09/23/2016 SUBJECTIVE: Patient relates dyspnea has improved considerably. Denies dyspnea on nasal cannula oxygen, currently with oxygen saturation 97%. There has been no chest pain. OBJECTIVE: Vital Signs: Blood pressure 119/49, heart rate 83 and regular. Neck: Jugular venous distention cannot be appreciated. Chest: Clear to auscultation. Cardiac Examination: Regular rate and rhythm without appreciable murmur or gallop. Extremities: There is no evidence of peripheral edema. Laboratory Data: Includes an initial troponin T of less than 0.01. Followup troponin T of less than 0.01. B-type natriuretic peptide on presentation was 10,229. IMPRESSION: 1. Acute on chronic systolic heart failure, improving with diuresis. 2. Severe ischemic cardiomyopathy. 3. Diabetes mellitus. 4. Hypertension. 5. Chronic kidney disease stage II. RECOMMENDATIONS: 1. Continue diuresis. 2. Ultimately would review and consider use of low dose angiotensin receptor blocking agent as tolerated. 3. Repeat chest x-ray. cc: Gilbert Dolan MD
--- NOTE | 2016-09-23 09:11 | Diag Imaging Result Doc PS360 ---
EXAM: CHEST-2 VIEWS HISTORY: CHF TECHNIQUE: COMPARISON: 09/22/2016. FINDINGS: Interval decrease in the infiltrates in the mid right lung. Heart is not enlarged. The vessels are not distended. No pleural effusions. The lungs are well expanded. IMPRESSION: Interval improvement. Electronically signed by Moris Ferguson 09/23/2016 9:09 AM
[2016-09-23] MEDS: IMDUR PO SCH (09:29)
[2016-09-23] MEDS: APRESOLINE PO SCH (09:29)
[2016-09-23] MEDS: CULTURELLE PO SCH (09:29)
[2016-09-23] MEDS: ASPIRIN PO SCH (09:29)
[2016-09-23] MEDS: MAXIPIME 2 GM/NS 2 GM/100 ML IVPB IV SCH (09:29)
[2016-09-23] MEDS: ZYVOX PO SCH (09:29)
[2016-09-23] MEDS: LASIX IV SCH (09:30)
--- NOTE | 2016-09-23 09:31 | PROGRESS NOTE ---
DATE: 09/23/2016 SUBJECTIVE: He feels good, anxious to go home. OBJECTIVE: Vital signs: Temperature 97.8 degrees, pulse 80, respirations 18. O2 saturation 97%. Urine output over 4 L. Lungs: Lungs are clear in all lung denis. Cardiovascular: Regular rhythm and rate without murmur or S3. LAB: White count 9850, hematocrit 38, platelet count a 158,000. Chemistry sodium 137, potassium 3.6, chloride 95, bicarb 28, BUN 32, creatinine 2.0, blood sugar 323, 212, and 124. A chest x-ray this morning with interval improvement of bilateral infiltrates. ASSESSMENT AND PLAN: 1. Right upper lobe pneumonia. Clinically much better. Doing well. 2. Acute respiratory failure. 3. Congestive heart failure. Ejection fraction 35%. Well compensated. Responded to diuresis. 4. Pulmonary venous hypertension. CT scan a little bit of pulmonary venous hypertension which is improved. 5. Hypertension. 6. Diabetes mellitus type 2. 7. Chronic kidney disease. 8. Coronary artery disease. PLAN: To see if we can let him go home. We will dictate a discharge summary. cc: Jose Montesinos MD
--- NOTE | 2016-09-23 09:44 | DISCHARGE SUMMARY ---
ADMISSION DATE: 09/21/2016 DISCHARGE DATE: 09/23/2016 SUBJECTIVE: This is a 65-year-old with a past medical history of congestive heart failure, hypertension, chronic kidney disease, diabetes mellitus type 2 who presented to the emergency department with a 3-day history of difficulty breathing. The patient noted that he is coughing more and more the last 3 days and was bringing up greenish sputum. The patient denied any fever, basically admitted to the hospital last time for right-sided pneumonia with congestive heart failure exacerbation. As per patient, home medication Lasix was discontinued last time. Denies any chest pain. Reports shortness of breath. In the ER was found to have O2 saturation of 87% on room air. Also found to have a high pro BNP 10,000 admitted for further evaluation. PAST MEDICAL HISTORY: 1. Systolic congestive heart failure. Ejection fraction 30-35%. 2. Hypertension. 3. Diabetes mellitus type 2. 4. Chronic kidney disease stage 2. 5. Coronary artery disease status post myocardial infarction in 2000. PAST SURGICAL HISTORY: Cardiac stent 2 years ago and appendectomy. HOSPITAL COURSE: Admitted with acute respiratory failure, right upper lobe pneumonia seen on chest x-ray and CT, and pulmonary venous hypertension consistent with his history of exacerbation or decompensation of his heart failure. He responded to diuresis and antibiotics and seemed to improve. Blood sugars were monitored for diabetes and renal function followed closely. He does have underlying chronic kidney disease. Breathing improved. Chest x-rays were followed. Chest x- ray today continued marked and interval improvement and clinically looked good. Wanted to go home. DISCHARGE MEDICATIONS: We will put him back on his medication but leave him on some Lasix as well. So he will take 40 mg of Lasix p.o. b.i.d. He will be on DuoNebs p.r.n., aspirin 81 mg a day, Lipitor 40 mg a day, Coreg 6.25 mg b.i.d., Plavix 75 mg a day, vitamin D 26544 units every week, Lasix 40 mg p.o. b.i.d., Apresoline 25 mg t.i.d., Lantus 40 mg at bedtime, Imdur 30 mg p.o. b.i.d., Culturelle 1 daily, Zyvox 600 mg will be stopped, Prilosec 40 mg p.o. daily continued. His cultures showed no growth on blood cultures. He will follow up with his primary care physician and sees ANTONETTE Shirley. cc: Jose Montesinos MD
[2016-09-23 13:30] VITALS: BP 128/52
[2016-09-28] MEDS ORDERED: VITAMIN D PO SCH (09:00)
== END 2016-09-23 13:43 | disposition home or self-care (01) ==
LOC: ED 18:12 → SUATTDRO 21:39 → 4N 21:39
PROVIDERS: ATTEND Emergency Medicine